=== PATIENT | male | born 1960 | race African-American/Black ===

== ENCOUNTER 2016-04-21 17:37 | Inpatient (IN) | payer OTHER ==
[~2016-04-21] VITALS: Ht 185.4 cm; Wt 125.0 kg
[~2016-04-21 17:37] MED LIST: ALLO100 PO; COLC1TAB7 PO; COUM5TAB PO; D-10TAB3 PO; OMEP20TA39 PO; WARF1TAB PO
[2016-04-21 17:41] VITALS: BP 141/89; PULSE 72; RESP 15; TEMP 97.9; O2SAT 99
--- NOTE | 2016-04-21 18:11 | PD ---
HPI Chief Complaint: Pain: Acute or Chronic Time Seen by Provider: 18:08 Travel History International Travel<30 days: No Contact w/Intl Traveler<30days: No Traveled to known affect area: No History of Present Illness HPI 55-year-old male with history of gout, previous DVT, and indigestion, presents to the emergency department for evaluation of a DVT in his right lower extremity. Patient states he has been having right lower extremity swelling for as long as he knows, mostly exacerbated with frequent standing. He has not really been having any pain but with her primary care provider last week at the OR who sent him for ultrasound. He was instructed to come the emergency department for further evaluation. Patient states that he is already on Coumadin 10 mg daily. INR was 2.7 last week. Denies any significant pain but does have aching in his anterior medial right thigh. Denies any recent illnesses, fever, chills. No chest pain or tightness. No difficulty breathing. No other symptoms to report. PFSH Past Medical History Autoimmune Disease: No Blood Disorders: No Cancer: No Cardiovascular Problems: No Chemotherapy: No Diminished Hearing: No Deep Vein Thrombosis: Yes GERD: Yes Glaucoma: No Gout: Yes Genitourinary: Yes (BPH) Immune Disorder: No Musculoskeletal: Yes (CHRONIC LOW BACK PAIN) Neurologic: No Psychiatric: No Respiratory: No Immunizations Current: Yes Radiation Therapy: No Renal Failure: Yes (CHRONIC KIDNEY DISEASE) Triglycerides - High: Yes Past Surgical History Surgical History: No Previous Surgery Other Surgery: No Social History Alcohol Use: Yes (SOCIAL) Tobacco Use: No Substance Use: No Allergies-Medications (Allergen,Severity, Reaction): Coded Allergies: Doxycycline (Unverified Allergy, Severe, 04/21/16) PT STATES THINKS HE HAD HX OF REACTION. Reported Meds & Prescriptions Reported Meds & Active Scripts Active Review of Systems Except as stated in HPI: all other systems reviewed are Neg Physical Exam Narrative GENERAL: Well-nourished male patient, ambulatory and in no acute distress SKIN: Warm and dry. HEAD: Atraumatic. Normocephalic. EYES: Pupils equal and round. No scleral icterus. No injection or drainage. ENT: No nasal bleeding or discharge. Mucous membranes pink and moist. NECK: Trachea midline. No JVD. CARDIOVASCULAR: Regular rate and rhythm. No murmur appreciated. RESPIRATORY: No accessory muscle use. Clear to auscultation. Breath sounds equal bilaterally. GASTROINTESTINAL: Abdomen soft, non-tender, nondistended. Hepatic and splenic margins not palpable. MUSCULOSKELETAL: No obvious deformities. No clubbing. No cyanosis. Moderate edema of the right lower extremity. Distal pulses are palpable. Cap refills within normal limits.. NEUROLOGICAL: Awake and alert. No obvious cranial nerve deficits. Motor grossly within normal limits. Normal speech. PSYCHIATRIC: Appropriate mood and affect; insight and judgment normal. Data Data Last Documented VS Vital Signs Date Time Temp Pulse Resp B/P Pulse Ox O2 Delivery O2 Flow Rate FiO2 04/21/16 17:41 97.9 72 15 141/89 99 Orders Complete Blood Count With Diff (04/21/16 18:07) Comprehensive Metabolic Panel (04/21/16 18:07) Coag Profile (04/21/16 18:07) Us Leg Venous Doppler (04/21/16 ) Electrocardiogram (04/21/16 ) Labs Laboratory Tests Test 04/21/16 18:20 White Blood Count 7.9 TH/MM3 Red Blood Count 4.98 MIL/MM3 Hemoglobin 15.0 GM/DL Hematocrit 44.2 % Mean Corpuscular Volume 88.7 FL Mean Corpuscular Hemoglobin 30.0 PG Mean Corpuscular Hemoglobin 33.9 % Concent Red Cell Distribution Width 14.5 % Platelet Count 197 TH/MM3 Mean Platelet Volume 10.1 FL Neutrophils (%) (Auto) 66.9 % Lymphocytes (%) (Auto) 23.7 % Monocytes (%) (Auto) 7.0 % Eosinophils (%) (Auto) 1.9 % Basophils (%) (Auto) 0.5 % Neutrophils # (Auto) 5.3 TH/MM3 Lymphocytes # (Auto) 1.9 TH/MM3 Monocytes # (Auto) 0.6 TH/MM3 Eosinophils # (Auto) 0.2 TH/MM3 Basophils # (Auto) 0.0 TH/MM3 CBC Comment DIFF FINAL Differential Comment Prothrombin Time 30.8 SEC Prothromb Time International 2.7 RATIO Ratio Activated Partial 41.8 SEC Thromboplast Time MDM Medical Decision Making Medical Screen Exam Complete: Yes Emergency Medical Condition: Yes Medical Record Reviewed: Yes Differential Diagnosis DVT versus lymphadenopathy versus cellulitis Narrative Course 55-year-old male presents to [facility] department for evaluation right lower extremity thrombosis. Workup initiated intravenous. Once a medical bed becomes available, patient will be transferred and care assumed that provider. Condition: Stable Argelia Craven Apr 21, 2016 18:11
[2016-04-21 19:10] LABS: AUTOMATED NEUTROPHIL # 5.3 TH/MM3 (1.8-7.7); BASOPHIL % 0.5 % (0.0-2.0); EOSINOPHIL # 0.2 TH/MM3 (0-0.4); EOSINOPHIL % 1.9 % (0.0-4.0); HEMATOCRIT 44.2 % (39.0-51.0); HEMO FLAGS DIFF FINAL; LYMPH % 23.7 % (9.0-44.0); LYMPHOCYTE # 1.9 TH/MM3 (1.0-4.8); MEAN CELL VOLUME 88.7 FL (80.0-100.0); MEAN CORPUSCULAR HGB CONC 33.9 % (32.0-36.0); NEUT % 66.9 % (16.0-70.0); PLATELET COUNT 197 TH/MM3 (150-450); RED BLOOD COUNT 4.98 MIL/MM3 (4.50-5.90); RED CELL DISTRIBUTION WIDTH 14.5 % (11.6-17.2); WHITE BLOOD COUNT 7.9 TH/MM3 (4.0-11.0)
[2016-04-21 19:18] LABS: APTT (PATIENT) 41.8 SEC (24.3-30.1); INTERNATIONAL NORMALIZED RATIO 2.7 RATIO; PROTHROMBIN TIME - PATIENT 30.8 SEC (9.8-11.6)
[2016-04-21 19:27] LABS: ALKALINE PHOSPHATASE 89 U/L (45-117); ALT (GPT) 34 U/L (12-78); ANION GAP 8 MEQ/L (5-15); AST (GOT) 31 U/L (15-37); BICARBONATE 26.4 MEQ/L (21.0-32.0); BLOOD UREA NITROGEN 14 MG/DL (7-18); CHLORIDE 105 MEQ/L (98-107); GLOMERULAR FILTRATION RATE 61 ML/MIN (>89); SODIUM (NA) 139 MEQ/L (136-145); TOTAL BILIRUBIN ADULT 0.5 MG/DL (0.2-1.0)
--- NOTE | 2016-04-21 19:37 | PD ---
Physical Exam Date Seen by Provider: Apr 21, 2016 Time Seen by Provider: 19:35 Narrative The patient is a 55-year-old Cate male was initially evaluated in triage for the mid-level provider. Please refer to the initial history, physical, diagnostic evaluation, and treatment modality plan. The patient was signed out with ultrasound of the right lower extremity pending and laboratory evaluation pending. Data Data Last Documented VS Vital Signs Date Time Temp Pulse Resp B/P Pulse Ox O2 Delivery O2 Flow Rate FiO2 04/21/16 19:40 87 18 163/103 97 04/21/16 17:41 97.9 Orders Complete Blood Count With Diff (04/21/16 18:07) Comprehensive Metabolic Panel (04/21/16 18:07) Coag Profile (04/21/16 18:07) Us Leg Venous Doppler (04/21/16 ) Electrocardiogram (04/21/16 ) Admit Order (Ed Use Only) (04/21/16 20:45) Labs Laboratory Tests Test 04/21/16 18:20 White Blood Count 7.9 TH/MM3 Red Blood Count 4.98 MIL/MM3 Hemoglobin 15.0 GM/DL Hematocrit 44.2 % Mean Corpuscular Volume 88.7 FL Mean Corpuscular Hemoglobin 30.0 PG Mean Corpuscular Hemoglobin 33.9 % Concent Red Cell Distribution Width 14.5 % Platelet Count 197 TH/MM3 Mean Platelet Volume 10.1 FL Neutrophils (%) (Auto) 66.9 % Lymphocytes (%) (Auto) 23.7 % Monocytes (%) (Auto) 7.0 % Eosinophils (%) (Auto) 1.9 % Basophils (%) (Auto) 0.5 % Neutrophils # (Auto) 5.3 TH/MM3 Lymphocytes # (Auto) 1.9 TH/MM3 Monocytes # (Auto) 0.6 TH/MM3 Eosinophils # (Auto) 0.2 TH/MM3 Basophils # (Auto) 0.0 TH/MM3 CBC Comment DIFF FINAL Differential Comment Prothrombin Time 30.8 SEC Prothromb Time International 2.7 RATIO Ratio Activated Partial 41.8 SEC Thromboplast Time Sodium Level 139 MEQ/L Potassium Level 4.6 MEQ/L Chloride Level 105 MEQ/L Carbon Dioxide Level 26.4 MEQ/L Anion Gap 8 MEQ/L Blood Urea Nitrogen 14 MG/DL Creatinine 1.45 MG/DL Estimat Glomerular Filtration 61 ML/MIN Rate Random Glucose 99 MG/DL Calcium Level 8.8 MG/DL Total Bilirubin 0.5 MG/DL Aspartate Amino Transf 31 U/L (AST/SGOT) Alanine Aminotransferase 34 U/L (ALT/SGPT) Alkaline Phosphatase 89 U/L Total Protein 8.1 GM/DL Albumin 3.6 GM/DL [facility] Medical Record Reviewed: Yes Supervised Visit with VICENTA: Yes Interpretation(s) EKG reveals normal sinus rhythm with a rate of 66. No ischemic changes or ectopy noted. Laboratory Tests Test 04/21/16 18:20 White Blood Count 7.9 TH/MM3 Red Blood Count 4.98 MIL/MM3 Hemoglobin 15.0 GM/DL Hematocrit 44.2 % Mean Corpuscular Volume 88.7 FL Mean Corpuscular Hemoglobin 30.0 PG Mean Corpuscular Hemoglobin 33.9 % Concent Red Cell Distribution Width 14.5 % Platelet Count 197 TH/MM3 Mean Platelet Volume 10.1 FL Neutrophils (%) (Auto) 66.9 % Lymphocytes (%) (Auto) 23.7 % Monocytes (%) (Auto) 7.0 % Eosinophils (%) (Auto) 1.9 % Basophils (%) (Auto) 0.5 % Neutrophils # (Auto) 5.3 TH/MM3 Lymphocytes # (Auto) 1.9 TH/MM3 Monocytes # (Auto) 0.6 TH/MM3 Eosinophils # (Auto) 0.2 TH/MM3 Basophils # (Auto) 0.0 TH/MM3 CBC Comment DIFF FINAL Differential Comment Prothrombin Time 30.8 SEC Prothromb Time International 2.7 RATIO Ratio Activated Partial 41.8 SEC Thromboplast Time Sodium Level 139 MEQ/L Potassium Level 4.6 MEQ/L Chloride Level 105 MEQ/L Carbon Dioxide Level 26.4 MEQ/L Anion Gap 8 MEQ/L Blood Urea Nitrogen 14 MG/DL Creatinine 1.45 MG/DL Estimat Glomerular Filtration 61 ML/MIN Rate Random Glucose 99 MG/DL Calcium Level 8.8 MG/DL Total Bilirubin 0.5 MG/DL Aspartate Amino Transf 31 U/L (AST/SGOT) Alanine Aminotransferase 34 U/L (ALT/SGPT) Alkaline Phosphatase 89 U/L Total Protein 8.1 GM/DL Albumin 3.6 GM/DL Last Impressions Lower Extremity Ultrasound 04/21/16 0000 Signed Impressions: Service Date/Time: March 19:50 - CONCLUSION: Positive for DVT superficial femoral vein through the posterior tibial vein with collateral superficial circulation. Portion of this may be chronic. Maximus Camp MD Differential Diagnosis Differential diagnosis includes recurrent DVT, failed anticoagulation therapy, lymphedema, pulmonary embolism, subtherapeutic INR, coagulopathy. Narrative Course I, Dr. Joseph, have reviewed the advance practice practitioner's documentation and am in agreement, met with the patient face to face, made the diagnosis, and the medical decision making was done by me. *My assessment and Findings: 55-year-old Cate male was initially evaluated by the mid-level provider. Please refer to the initial history, physical, diagnostic evaluation, treatment modality plan. The patient has a history of DVTs in both legs in the past, is currently on Coumadin is therapeutic with an INR 2.7. Patient has some pain located over the medial aspect of his right leg and had an outpatient ultrasound performed at the [place] [facility] which revealed a new DVT according to the patient. The patient denies any chest pain, shortness of breath, nausea, or vomiting. He does note his right lower extremity slightly swollen in comparison to the left, but states this is intermittent. The patient was referred from the [place] [facility] to the emergency department for evaluation of possible new DVT despite therapeutic INR. Therefore, ultrasound was ordered of the right lower extremity to evaluate for acute versus chronic DVT. The patient's INR was noted to be therapeutic at 2.7. Ultrasound does reveal a DVT in the right leg, collateral circulation noted, may be acute on chronic. Patient does have acute on chronic with therapeutic INR, maybe candidate for IVC filter. Therefore, patient will be 23 hour observation to medicine, may benefit from vascular surgery input in regards IVC filter either by vascular or interventional radiology. Patient is comfortable with this plan of care and disposition. Physician Communication Physician Communication I discussed patient with Dr. Harrison who agrees with [address] Matson. Diagnosis Primary Impression: DVT (deep venous thrombosis) Qualified Code: I82.401 - Deep vein thrombosis (DVT) of right lower extremity , unspecified chronicity, unspecified vein Admitting Information Admitting Physician Requests: Observation Condition: Stable Adarsh Joseph MD Apr 21, 2016 19:37
[2016-04-21 19:38] LABS: POTASSIUM 4.6 MEQ/L (3.5-5.1)
[2016-04-21 19:40] VITALS: BP 163/103; PULSE 87; RESP 18; O2SAT 97
[2016-04-21] MEDS ORDERED: COLC1CAP3 PO (19:40)
[2016-04-21] MEDS ORDERED: ALLO100T PO (19:40)
[2016-04-21] MEDS ORDERED: OMEP20TA PO (19:40)
[2016-04-21] MEDS ORDERED: VITA1000 PO (19:40)
[2016-04-21] MEDS ORDERED: WARF-22 PO (19:40)
--- NOTE | 2016-04-21 20:30 | RADRPT ---
EXAM DATE/TIME: 04/21/2016 19:50 [facility] COMPARISON: US LEG BILATERAL VENOUS DOPPLER, August 18, 2011, 17:39. INDICATIONS : Right leg swelling. MEDICAL HISTORY : Deep venous thrombosis. Gastroesophageal reflux disease. Benign prostatic hyperplasia, (BPH) Hyper lipidemia. Chronic kidney disease. Chronic lower back pain. Gout. Measles. SURGICAL HISTORY : None. ENCOUNTER: Subsequent ACUITY: >1 year PAIN SCORE: 0/10 LOCATION: Right leg. TECHNIQUE: Venous ultrasound of the leg was performed from the inguinal ligament to the proximal calf. Real-prachi e, color Doppler and spectral tracing, compression and augmentation techniques were used. FINDINGS: The patient demonstrates occlusive thrombus in the superficial femoral vein bifurcation to the gl[place] kil[place] placer ior tibial vein. There is collateral venous flow suggesting a portion of this may be chronic thrombos is. CONCLUSION: Positive for DVT superficial femoral vein through the posterior tibial vein with collateral superfici al circulation. Portion of this may be chronic. Maximus Camp MD on April 21, 2016 at 20:27 Board Certified Radiologist. This report was verified electronically.
--- NOTE | 2016-04-21 21:11 | HHI.HP ---
[facility] Service Family Medicine Primary Care Physician [facility] Admission Diagnosis acute on chronic DVT failed Coumadin therapy Diagnoses: International Travel<30 Days: No Contact w/Intl Traveler<30days: No Known Affected Area: No History of Present Illness 55 year-old male with hx DVT x2 on anticoagulation and unknown coagulopathy presents to ED 04/21/16 for evaluation of DVT in right leg. Reports history of DVT L leg 2003 and R leg 2005. Since DVTs, reports chronic daily swelling of his R leg that worsens over the day and improves after rest. Swelling minimally improved with compression stockings, so he does not wear them. Currently reports aching sensation in medial R thigh, but denies calf pain or erythema. Though his chronic symptoms were unchanged, he requested Doppler of leg from [place] last week "because it hadn't been checked in a while". Doppler showed DVT in superficial femoral vein through the posterior tibial vein with collateral superficial circulation, possibly chronic, and he was instructed to come to ED. Denies any recent illnesses, fever/chills, chest pain/shortness of breath. Reports compliance with Coumadin 10mg daily with 2-4 week checks of INR, most recently 2.7. Drove long car ride to [place] last week, but stopped frequently to stretch. Denies airplane travel. Has been diagnosed with a thrombophilic disorder, though he is unsure of the name. Workup was performed as father, mother, brother have also had DVTs. Pt discussed placing IVC filter 6 months ago , but was told it wasn't recommended (though he is unsure why). Review of Systems ROS Limitations: Poor Historian Constitutional: DENIES: Fever, Chills, Dizziness Eyes: DENIES: Blurred vision, Vision loss Respiratory: COMPLAINS OF: Cough, DENIES: Sputum production, Shortness of breath Cardiovascular: DENIES: Chest pain, Syncope Gastrointestinal: DENIES: Constipation, Diarrhea, Nausea, Vomiting Musculoskeletal: COMPLAINS OF: Muscle aches Integumentary: DENIES: Rash Neurologic: DENIES: Seizures Psychiatric: DENIES: Confusion, Depression Past Family Social History Past Medical History Gout DVT x2 (2003, 2005) Unknown coagulopathy GERD Past Surgical History Colonoscopy Otherwise, denies Reported Medications Reported Meds & Active Scripts Active Reported Warfarin 10 Mg Tab 10 Mg PO DAILY Omeprazole 20 Mg Tab 20 Mg PO DAILY Colchicine 0.6 Mg Cap 0.6 Mg PO DAILY Vitamin D-1000 (Cholecalciferol) 1,000 Unit Tab 1,000 Units PO DAILY Allopurinol 100 Mg Tab 100 Mg PO DAILY Allergies: Coded Allergies: Doxycycline (Unverified Allergy, Severe, 04/21/16) PT STATES THINKS HE HAD HX OF REACTION. Active Ordered Medications Current Medications Cholecalciferol (Vitamin D3) 1,000 units DAILY PO ; Start 04/22/16 at 09:00 Pantoprazole Sodium (Protonix) 20 mg DAILY PO ; Start 04/22/16 at 09:00 Warfarin Sodium (Coumadin) 10 mg DAILY@16 PO ; Start 04/22/16 at 16:00 Patient Medication Teaching (Coumadin Booklet) 1 ONCE ONCE XX Last administered on 04/21/16 21:56; Start 04/21/16 at 21:15; Stop 04/21/16 at 21:16 ; Status DC Warfarin Sodium (Coumadin) 10 mg ONCE ONCE PO Last administered on 04/21/16 21:56; Start 04/21/16 at 21:30; Stop 04/21/16 at 21:31; Status DC IV Flush (NS Flush) 2 ml UNSCH PRN FLUSH FLUSH AFTER USING IV ACCESS; Start at 21:30 IV Flush (NS Flush) 2 ml BID FLUSH ; Start 04/22/16 at 09:00 Acetaminophen (Tylenol) 650 mg Q4H PRN PO TEMP > 100.4 Last administered on 03:13; Start 04/21/16 at 21:30 Ondansetron HCl (Zofran Inj) 4 mg Q6H PRN IVP NAUSEA OR VOMITING; Start at 21:30 Naloxone HCl (Narcan Inj) 0.4 mg UNSCH PRN IV SEE LABEL COMMENTS; Start at 21:30 Family History Mother, Brother, Father with coagulopathy (pt unsure of name) 3 children, healthy Social History Tobacco: none Alcohol: daily vodka + juice, 2-3 glasses. CAGE screen negative. 1 month prior , did not drink alcohol for 1 week while on antibiotics. 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 HEENT: PERRL. EOMI. No scleral icterus. NECK: No LAD CV: RRR. No murmurs RESP: Lungs CTAB. No wheezing or rales, good air movement. GI: Abd soft NTND. No masses. MSK: R calf circumference > L. Tender to palpation R medial thigh, not R calf. Ankle swollen, but able to visualize both malleoli. No pitting edema. Posterior tibial pulses 2+ NEURO:Grossly motor and sensory intact. Sensation intact to light touch in all extremities. Moves all limbs against gravity. PSYCH: Appropriate affect. Good insight. Poor historian. Laboratory Laboratory Tests Test 04/21/16 18:20 White Blood Count 7.9 Red Blood Count 4.98 Hemoglobin 15.0 Hematocrit 44.2 Mean Corpuscular Volume 88.7 Mean Corpuscular Hemoglobin 30.0 Mean Corpuscular Hemoglobin 33.9 Concent Red Cell Distribution Width 14.5 Platelet Count 197 Mean Platelet Volume 10.1 Neutrophils (%) (Auto) 66.9 Lymphocytes (%) (Auto) 23.7 Monocytes (%) (Auto) 7.0 Eosinophils (%) (Auto) 1.9 Basophils (%) (Auto) 0.5 Neutrophils # (Auto) 5.3 Lymphocytes # (Auto) 1.9 Monocytes # (Auto) 0.6 Eosinophils # (Auto) 0.2 Basophils # (Auto) 0.0 CBC Comment DIFF FINAL Differential Comment Prothrombin Time 30.8 Prothromb Time International 2.7 Ratio Activated Partial 41.8 Thromboplast Time Sodium Level 139 Potassium Level 4.6 Chloride Level 105 Carbon Dioxide Level 26.4 Anion Gap 8 Blood Urea Nitrogen 14 Creatinine 1.45 Estimat Glomerular Filtration 61 Rate Random Glucose 99 Calcium Level 8.8 Total Bilirubin 0.5 Aspartate Amino Transf 31 (AST/SGOT) Alanine Aminotransferase 34 (ALT/SGPT) Alkaline Phosphatase 89 Total Protein 8.1 Albumin 3.6 Result Diagram: 04/21/16181904/21/161819 Imaging Last Impressions Lower Extremity Ultrasound 04/21/16 0000 Signed Impressions: Service Date/Time: March 19:50 - CONCLUSION: Positive for DVT superficial femoral vein through the posterior tibial vein with collateral superficial circulation. Portion of this may be chronic. Maximus Camp MD Assessment and Plan Assessment and Plan 55 year-old AA male with hx of DVT x2 admitted to observation 04/21/16 for treatment [id number] DVT with failed outpt treatment with Coumadin. Code Status Full Discussed Condition With SDW: Dr. Harrison Problem List: (1) DVT (deep venous thrombosis) Status: Acute Plan: Likely [id number] due to long-standing history of R leg swelling. Failed outpt therapy with Coumadin and therapeutic INR (2.7 last week, per pt). Had extensive coagulopathy workup and diagnosed with a clotting disorder, but can not remember the name. Extensive family history of DVTs in mother, father, brother. CBC, Electrolytes wnl. BUN/Cr at baseline 1.3-1.4 (14/1.45, GFR 61). EKG: Normal EKG. HR 66. Normal sinus rhythm. Intervals wnl. No ST elevations or depression. -Admit to Observation under Dr. Matson -Vascular surgery consult for evaluation of IVC filter placement -Request nursing assistance with obtain records from [place], especially regarding coagulopathy -Tylenol 650mg q4h PO PRN pain (2) Gout Status: Chronic Plan: Last flare up 1 week ago. Presents in R foot as burning sensation. Denies swelling of great toe or joints. -Non-compliant with Allopurinol daily- continue home med -Hold Colchicine PRN flare up (3) GERD (gastroesophageal reflux disease) Status: Acute Plan: -Continue home Protonix 20mg daily (4) Alcohol consuption of more than two drinks per day Status: Chronic Plan: Daily use alcohol, 2-3 drinks, denies withdrawal, negative CAGE screen -Alcohol cessation counseling provided -[facility] protocol (5) Vitamin D deficiency Status: Chronic Plan: -Continue home Vitamin D3 1000mg daily (6) Fluids, Electrolytes, Nutrition, Prophylaxis Status: Acute Plan: Fluids: Per PO Electrolytes: monitor and replete, as needed Nutrition: Regular diet DVT prophylaxis: continue therapeutic Warfarin GI prophylaxis: continue home medication for GERD Problem Qualifiers (1) DVT (deep venous thrombosis): Qualified Code: I82.401 - Deep vein thrombosis (DVT) of right lower extremity, unspecified chronicity, unspecified vein Natalia Segal MD R1 Apr 21, 2016 21:11
[2016-04-21] MEDS ORDERED: ONDANSETRON HCL 4 MG/2 ML VIAL IVP PRN (21:30)
[2016-04-21] MEDS ORDERED: WARFARIN SOD 10 MG TAB PO ONE (21:30)
[2016-04-21] MEDS ORDERED: SODIUM CHLORIDE 0.9% FLUSH 5 ML FLUSH FLUSH PRN (21:30)
[2016-04-21] MEDS ORDERED: NALOXONE HCL 0.4 MG/ML AMP IV PRN (21:30)
[2016-04-21 23:26] VITALS: BP 136/79; PULSE 64; RESP 18; TEMP 98.7; O2SAT 96
[2016-04-22] VITALS (7 sets, daily range): BP systolic 115–150; BP diastolic 81–106; PULSE 53–62; RESP 16–20; TEMP 95.4–98.5; O2SAT 94–97
[2016-04-22] MEDS: ACETAMINOPHEN 325 MG TAB PO PRN ×3 (03:13→12:23)
[2016-04-22] MEDS ORDERED: FLUMAZENIL 0.5 MG/5 ML VIAL IV PUSH PRN (06:30)
[2016-04-22] MEDS ORDERED: LORazepam 2 MG TAB PO PRN (06:30)
[2016-04-22] MEDS ORDERED: LORazepam 2 MG/ML VIAL IV PUSH PRN ×4 (06:30)
[2016-04-22] MEDS ORDERED: LORazepam 1 MG TAB PO PRN (06:30)
[2016-04-22 07:51] LABS: INTERNATIONAL NORMALIZED RATIO 2.9 RATIO; PROTHROMBIN TIME - PATIENT 33.3 SEC (9.8-11.6)
[2016-04-22] MEDS: SODIUM CHLORIDE 0.9% FLUSH 5 ML FLUSH FLUSH SCH ×2 (08:54→21:14)
[2016-04-22] MEDS: PANTOPRAZOLE SOD 20 MG DELAYED RELEASE TAB PO SCH (08:54)
[2016-04-22] MEDS: CHOLECALCIFEROL (VIT D3) 1000 UNIT TAB PO SCH (08:54)
[2016-04-22] MEDS: ALLOPURINOL 100 MG TAB PO SCH (08:54)
[2016-04-22] MEDS ORDERED: ACETAMINOPHEN/HYDROcodone 325 MG/5 MG TAB PO ONE (09:00)
--- NOTE | 2016-04-22 11:48 | HHI.FPPN ---
Subjective Remarks Patient seen, examined and discussed with the medicine team. This is a 55-year-old [employer] with chronic thrombophilia and chronic DVT right lower extremity on Coumadin who was scanned at the [facility] yesterday and found to have acute on chronic DVT right lower extremity. This involved the posterior tibial and superficial femoral veins. Patient had some swelling of this lower extremity on a daily basis but no other symptoms. Family history in mother and brothers of blood clotting disorder. He prefers to take Coumadin versus any other novel anticoagulant so he can be reassured by his INR test. Please see history and physical examination for this admission for additional past, family, social history and review of systems. This was reviewed with the patient this morning and there is no change with the exception of no other symptoms today other than the intermittent swelling of his right lower extremity. This morning, he is asymptomatic. He has no complaints and would like to go home, he would like to continue his Coumadin. Objective Vitals Vital Signs Date Time Temp Pulse Resp B/P Pulse Ox O2 Delivery O2 Flow Rate FiO2 04/22/16 08:00 97.9 59 20 139/90 94 04/22/16 05:36 98.5 62 18 139/81 95 04/21/16 23:26 98.7 64 18 136/79 96 04/21/16 19:40 87 18 163/103 97 04/21/16 17:41 97.9 72 15 141/89 99 Result Diagram: 04/21/16 1820 04/21/16 1820 Other Results Laboratory Tests Test 04/21/16 04/22/16 18:20 06:38 White Blood Count 7.9 TH/MM3 Red Blood Count 4.98 MIL/MM3 Hemoglobin 15.0 GM/DL Hematocrit 44.2 % Mean Corpuscular Volume 88.7 FL Mean Corpuscular Hemoglobin 30.0 PG Mean Corpuscular Hemoglobin 33.9 % Concent Red Cell Distribution Width 14.5 % Platelet Count 197 TH/MM3 Mean Platelet Volume 10.1 FL Neutrophils (%) (Auto) 66.9 % Lymphocytes (%) (Auto) 23.7 % Monocytes (%) (Auto) 7.0 % Eosinophils (%) (Auto) 1.9 % Basophils (%) (Auto) 0.5 % Neutrophils # (Auto) 5.3 TH/MM3 Lymphocytes # (Auto) 1.9 TH/MM3 Monocytes # (Auto) 0.6 TH/MM3 Eosinophils # (Auto) 0.2 TH/MM3 Basophils # (Auto) 0.0 TH/MM3 CBC Comment DIFF FINAL Differential Comment Prothrombin Time 30.8 SEC 33.3 SEC Prothromb Time International 2.7 RATIO 2.9 RATIO Ratio Activated Partial 41.8 SEC Thromboplast Time Sodium Level 139 MEQ/L Potassium Level 4.6 MEQ/L Chloride Level 105 MEQ/L Carbon Dioxide Level 26.4 MEQ/L Anion Gap 8 MEQ/L Blood Urea Nitrogen 14 MG/DL Creatinine 1.45 MG/DL Estimat Glomerular Filtration 61 ML/MIN Rate Random Glucose 99 MG/DL Calcium Level 8.8 MG/DL Total Bilirubin 0.5 MG/DL Aspartate Amino Transf 31 U/L (AST/SGOT) Alanine Aminotransferase 34 U/L (ALT/SGPT) Alkaline Phosphatase 89 U/L Total Protein 8.1 GM/DL Albumin 3.6 GM/DL Imaging Last Impressions Lower Extremity Ultrasound 04/21/16 0000 Signed Impressions: Service Date/Time: March 19:50 - CONCLUSION: Positive for DVT superficial femoral vein through the posterior tibial vein with collateral superficial circulation. Portion of this may be chronic. Maximus Camp MD Objective Remarks O. CONSTITUTIONAL/GEN: normally nourished, in NAD. EYES: conjunctiva normal, PERRLA, EOMI. ENT: Mouth and pharynx normal. NECK: thyroid midline, carotids symmetrical. LUNGS: clear A-P, respiratory effort is normal. CARDIOVASCULAR: RR without murmur or gallop. No significant edema. GI/ABD: soft without masses, without organomegaly. : no CVA tenderness NEURO: No focal deficits. SKIN: color normal, no rashes noted. HEME/LYMPH: no bruising, petechia or significant adenopathy MUSC: back is normal in appearance. Extremities are normal in appearance. I do not appreciate any swelling in the right lower extremity. PSYCH/MENTAL STATUS: Alert and oriented x 3. A/P Assessment and Plan 55 year-old AA male with hx of DVT x2 admitted to observation 04/21/16 for treatment [id number] DVT with failed outpt treatment with Coumadin. Attending Attestation Patient seen and examined. Case reviewed and discussed with the resident team. Agree with plan of care as discussed with me and documented in the resident note. Problem List: (1) DVT (deep venous thrombosis) Status: Acute Plan: Likely [id number] due to long-standing history of R leg swelling. Failed outpt therapy with Coumadin and therapeutic INR (2.7 last week, per pt). Had extensive coagulopathy workup and diagnosed with a clotting disorder, but can not remember the name. Extensive family history of DVTs in mother, father, brother. CBC, Electrolytes wnl. BUN/Cr at baseline 1.3-1.4 (14/1.45, GFR 61). EKG: Normal EKG. HR 66. Normal sinus rhythm. Intervals wnl. No ST elevations or depression. -Admit to Observation under Dr. Matson -Vascular surgery consult for evaluation of IVC filter placement -Request nursing assistance with obtain records from [facility], especially regarding coagulopathy -Tylenol 650mg q4h PO PRN pain (2) Gout Status: Chronic Plan: Last flare up 1 week ago. Presents in R foot as burning sensation. Denies swelling of great toe or joints. -Non-compliant with Allopurinol daily- continue home med -Hold Colchicine PRN flare up (3) GERD (gastroesophageal reflux disease) Status: Acute Plan: -Continue home Protonix 20mg daily (4) Alcohol consuption of more than two drinks per day Status: Chronic Plan: Daily use alcohol, 2-3 drinks, denies withdrawal, negative CAGE screen -Alcohol cessation counseling provided -[facility] protocol (5) Vitamin D deficiency Status: Chronic Plan: -Continue home Vitamin D3 1000mg daily (6) Fluids, Electrolytes, Nutrition, Prophylaxis Status: Acute Plan: Fluids: Per PO Electrolytes: monitor and replete, as needed Nutrition: Regular diet DVT prophylaxis: continue therapeutic Warfarin GI prophylaxis: continue home medication for GERD Problem Qualifiers (1) DVT (deep venous thrombosis): Qualified Code: I82.401 - Deep vein thrombosis (DVT) of right lower extremity, unspecified chronicity, unspecified vein Laurel Matson MD Apr 22, 2016 11:48
[2016-04-22 11:49] LABS: BICARBONATE 28.3 MEQ/L (21.0-32.0); POTASSIUM 3.9 MEQ/L (3.5-5.1)
[2016-04-22] MEDS: ACETAMINOPHEN/HYDROcodone 325 MG/5 MG TAB PO PRN ×2 (15:49→22:37)
[2016-04-22] MEDS ORDERED: WARFARIN SOD 10 MG TAB PO SCH (16:00)
--- NOTE | 2016-04-22 17:29 | EKG ---
Date Performed: 04/21/2016 Time Performed: 18:30:51 PTAGE: 55 years EKG: Sinus rhythm NORMAL ECG PREVIOUS TRACING : 05/12/2014 09.55.06 Since previous tracing, no significant change noted DOCTOR: Christin Cadet Interpretating Date/Time 04/22/2016 17:26:09
[2016-04-22] MEDS: FOLIC ACID 1 MG TAB PO SCH (21:14)
--- NOTE | 2016-04-22 22:18 | RADRPT ---
EXAM DATE/TIME: 04/22/2016 20:50 [place] COMPARISON: No previous studies available for comparison. INDICATIONS : Cephalgia. RADIATION DOSE: 56.35 CTDIvol (mGy) MEDICAL HISTORY : Deep venous thrombosis. SURGICAL HISTORY : None. ENCOUNTER: Initial ACUITY: 1 day PAIN SCALE: 8/10 LOCATION: Left cranial TECHNIQUE: Multiple contiguous axial images were obtained of the head. Using automated exposure control and adj ustment of the mA and/or kV according to patient size, radiation dose was kept as low as reasonably a chievable to obtain optimal diagnostic quality images. FINDINGS: CEREBRUM: The ventricles are normal for age. No evidence of midline shift, mass lesion, hemorrhage or acute in farction. No extra-axial fluid collections are seen. POSTERIOR FOSSA: The cerebellum and brainstem are intact. The 4th ventricle is midline. The cerebellopontine angle i s unremarkable. EXTRACRANIAL: Mild mucoperiosteal thickening seen of the ethmoid and maxillary air cells. There is a small fluid le le in the left maxillary sinus. SKULL: The calvaria is intact. No evidence of skull fracture. CONCLUSION: No acute intracranial abnormality. Sinus disease as above. Rafael Jones MD on April 22, 2016 at 22:16 Board Certified Radiologist. This report was verified electronically.
--- NOTE | 2016-04-22 22:56 | MB ---
cc: NATALIA SEGAL MD, RUBY ANNE E. M.D. DATE OF CONSULTATION 04/22/[address] Natalia Segal CHIEF COMPLAINT Dr. Segal requests a consultation for Mr. Balderas with regarding recurrent right lower extremity deep vein thromboses. HISTORY OF PRESENT ILLNESS Mr. Balderas is a 55-year-old man with a history of gout, gastroesophageal reflux and recurrent right lower extremity deep vein thromboses. 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 He believes his mother has Factor five Leiden. His four sisters are unaffected and has a brother that has Factor five Leiden. He did not remember whether it is homozygous or heterozygous. However, review of the electronic medical record has a hypercoagulable workup dating back to November 15, 2004, shows the presence of heterozygosity for factor five Leiden. A prothrombin gene mutation was normal. His homocysteine level was significantly elevated, anticardiolipin antibody was positive for phosphatidyl IgM antibody. The antithrombin III was normal. The protein C, protein S were normal. There has been no repeat evaluation of his work antiphospholipid antibody. Mr. Balderas reports [facility] because of concern for progression of deep vein thromboses despite therapeutic INR. His INRs were reportedly 2.7 a week ago and was 2.7 on admission. He has an ultrasound of the lower extremity coordinated on 04/21 that showed positive for DVT superficial femoral vein and posterior tibial vein with collateral superficial circulation which suggests that the clot was chronic. Review of the electronic medical record show multiple lower extremity Doppler ultrasound, the earliest which was November 02, 2004. The left lower extremity ultrasound shows no deep vein thromboses. November 11, 2004 repeat Doppler ultrasound the left lower extremity showed deep vein thromboses in the popliteal vein. The next ultrasound from 08/23/2006 was a chronic organized thrombus nonocclusive in a popliteal vein. On March 10, 2009, he had an ultrasound of the right lower extremity that shows an extensive deep vein thromboses of the right common femoral vein, femoral vein, popliteal vein extending into the peroneal vein. Bilateral ultrasound on 08/18/2011 identified right femoral and popliteal veins vein thrombus which is nonocclusive. There is no thrombus identified in the left deep venous system. The right common femoral vein and the saphenous vein were patent back in 2011. Doppler ultrasound of the left arm in 2014 was negative. Results of the [facility] the [facility] was not available. However, the most recent ultrasound from April 21, 2006 shows occlusive thrombus in the superficial femoral vein in the right. Mr. Balderas is aware of his need for chronic anticoagulation. He reports that he is quite compliant with his Coumadin. He is familiar with his response to Coumadin. He has noted in the past that withholding one to two doses would throw his INR completely off. He reports no significant change in his symptoms. He has chronic swelling of the lower extremity at the end of the day which will resolve once he elevates his legs. He again states that he was recommended to come to [place] because of changes were seen in the ultrasound, presumably his last ultrasound was compared to previous one. His most urgent complaint at the moment is severe headache that has been going on all day. It is not alleviated by p.r.n. medications with Lortab that he took in the afternoon. He denies any vision changes. No nausea, no vomiting. He denies any bleeding. He has used low-molecular weight heparin in the past and does not like injections. He is able to give himself a shot. He has discussed with his primary physician alternatives to warfarin, but has returned repeatedly to Warfarin desirous of being able to monitor his anticoagulant therapy. He denies any bleeding event while on warfarin. He has not had recurrent event while on warfarin. He expressed concern about the inferior vena cava filters. He denies any changes in his bowel habits. No urinary complaints. The rest of his review of systems is negative. PAST MEDICAL HISTORY 1. Factor five Leiden heterozygosity positive anti phospholipid IgM antibody positivity 2. Gastroesophageal reflux, 3. Gout. 4. Mild renal insufficiency. PAST SURGICAL HISTORY Colonoscopy. FAMILY HISTORY Significant for brother who has Factor five Leiden, mother suspected to have Factor five Leiden. He has three children that are untested. SOCIAL HISTORY Denies any tobacco or illicit drug use. 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 He is , lives with his and children. He drinks alcohol daily. ALLERGIES DOXYCYCLINE CURRENT MEDICATIONS 1. Warfarin 10 mg once a day. 2. [place] 3. Vitamin D3. 4. Protonix. 5. Allopurinol. 6. Tylenol. PHYSICAL EXAMINATION VITAL SIGNS: Temperature 95.6, heart rate 51, respiratory rate 20, blood pressure 150/98. GENERAL: Mr. Balderas is a well-developed, well-nourished man who looks his stated age. He appears to be robust and healthy. HEENT: Pupils are round, reactive to light and accommodation. Oropharynx is clear. NECK: Supple. No adenopathy. LUNGS: Clear to auscultation. CARDIOVASCULAR: Reveals a mild bradycardia. ABDOMEN: Benign lower extremity with mild asymmetry right leg, more prominent than the left. Good pulses. LABORATORY DATA CBC is normal. BUN of 13, creatinine 133, estimated glomerular filtration rate of 68. ASSESSMENT/PLAN Mr. Balderas is a 55-year-old man with history of recurrent right lower extremity deep vein thromboses and previous left lower extremity deep vein thromboses. He is admitted for concerns of progression or failure of Coumadin. He has a questionable progression of clot while on therapeutic doses of Coumadin and a therapeutic INR. We had a lengthy discussion about the options for anticoagulant therapy. We discussed the option of trial of low-molecular weight heparin for a short while to see if it makes a difference in his leg symptoms. He reports no changes in his leg symptoms, only that the ultrasound had prompted him to come into the hospital to be evaluated. 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 I am unable to resolve the differences in the ultrasound. However, the reports were not available to me. We discussed risks and benefit of filter placement. I recommend against filter placement. He has no contraindication to anticoagulant therapy at present. He should be able to continue his anticoagulant therapy with Coumadin versus different anticoagulant. We will see if he is willing to try a low molecular weight heparin which he has tried before. Alternatively, he is encouraged to follow up with his physician at the [facility] to consider anticoagulant therapy since [facility] will need to have the drug chosen to be on formulary for him to continue it senior care. We discussed the need for long-term secondary prophylaxis in light of his recurrent deep vein thromboses and Factor five Leiden. He understands his risk at present and reports that he is compliant, now especially quite avid about confirming that his INR is therapeutic. In light of his new symptoms of severe headache, CT scan of the brain will be coordinated. Management would depend on results of that. I suspect that the CT scan of the head would be negative. I suspect that this may be rebound headache from his [place]. Lastly, he is encouraged to wear support hose more regularly. This would prevent postphlebitic symptoms. Repeat antiphospholipid antibody will be checked. His homocysteine level was previously elevated which may be related to his chronic renal insufficiency. Empiric trial of folic acid and B12 to lower it will be given. MD DANAY Lester/ /8:41 PM /10:12 PM MTDD
[2016-04-23 01:18] VITALS: BP 110/70; PULSE 64; RESP 16; TEMP 96.3; O2SAT 95
[2016-04-23 05:18] VITALS: BP 102/61; PULSE 60; RESP 15; TEMP 97.2; O2SAT 95
[2016-04-23 06:39] LABS: BICARBONATE 24.3 MEQ/L (21.0-32.0); POTASSIUM 4.4 MEQ/L (3.5-5.1)
[2016-04-23 06:57] LABS: HEMATOCRIT 42.4 % (39.0-51.0); MEAN CELL VOLUME 89.1 FL (80.0-100.0); MEAN CORPUSCULAR HEMOGLOBIN 29.6 PG (27.0-34.0); MEAN CORPUSCULAR HGB CONC 33.2 % (32.0-36.0); PLATELET COUNT 169 TH/MM3 (150-450); RED BLOOD COUNT 4.76 MIL/MM3 (4.50-5.90); RED CELL DISTRIBUTION WIDTH 14.3 % (11.6-17.2); REVIEW FLAG FINAL; WHITE BLOOD COUNT 6.9 TH/MM3 (4.0-11.0)
[2016-04-23 07:33] LABS: INTERNATIONAL NORMALIZED RATIO 2.8 RATIO; PROTHROMBIN TIME - PATIENT 32.5 SEC (9.8-11.6)
[2016-04-23 08:00] VITALS: BP 128/86; PULSE 57; RESP 18; TEMP 98.4; O2SAT 96
[2016-04-23] MEDS ORDERED: FOLI1TAB4 PO (08:45)
--- NOTE | 2016-04-23 08:46 | HHI.DCPOC ---
Discharge Care Plan Diagnosis: (1) Chronic deep vein thrombosis (DVT) Goals to Promote Your Health * To prevent worsening of your condition and complications * To maintain your health at the optimal level Directions to Meet Your Goals Take your medications as prescribed Follow your dietary instruction Follow activity as directed Keep your appointments as scheduled Take your immunizations and boosters as scheduled If your symptoms worsen call your PCP, if no PCP go to Urgent Care Center or Emergency Room Smoking is Dangerous to Your Health. Avoid second hand smoke Call the 24-hour hour crisis hotline for domestic abuse at Josephine Patel MD R2 Apr 23, 2016 08:46
[2016-04-23] MEDS ORDERED: VITA10002 PO (08:50)
--- NOTE | 2016-04-23 08:54 | PD.ONC.PN ---
Subjective Subjective Remarks Afebrile overnight. Pt resting in bed watching TV in no distress. He states he slept OK. He is asking questions about the results of his blood work. Objective Data Date Time Temp Pulse Resp B/P Pulse Ox O2 Delivery O2 Flow Rate FiO2 04/23/16 05:18 97.2 60 15 102/61 95 04/23/16 01:18 96.3 64 16 110/70 95 04/22/16 20:00 96.0 59 16 126/92 97 04/22/16 18:15 53 150/98 04/22/16 18:07 95.6 61 20 148/106 97 04/22/16 15:51 95.4 59 18 115/83 95 04/22/16 12:03 97.3 60 18 140/89 94 Result Diagram: 04/23/16 0547 04/23/16 0547 Laboratory Results Laboratory Tests Test 04/22/16 04/23/16 10:59 05:47 Sodium Level 140 MEQ/L 141 MEQ/L Potassium Level 3.9 MEQ/L 4.4 MEQ/L Chloride Level 106 MEQ/L 108 MEQ/L Carbon Dioxide Level 28.3 MEQ/L 24.3 MEQ/L Anion Gap 6 MEQ/L 9 MEQ/L Blood Urea Nitrogen 13 MG/DL 16 MG/DL Creatinine 1.33 MG/DL 1.48 MG/DL Estimat Glomerular Filtration 68 ML/MIN 60 ML/MIN Rate Random Glucose 112 MG/DL 104 MG/DL Calcium Level 8.5 MG/DL 8.6 MG/DL Vitamin B12 Level 542 PG/ML White Blood Count 6.9 TH/MM3 Red Blood Count 4.76 MIL/MM3 Hemoglobin 14.1 GM/DL Hematocrit 42.4 % Mean Corpuscular Volume 89.1 FL Mean Corpuscular Hemoglobin 29.6 PG Mean Corpuscular Hemoglobin 33.2 % Concent Red Cell Distribution Width 14.3 % Platelet Count 169 TH/MM3 Mean Platelet Volume 9.8 FL Prothrombin Time 32.5 SEC Prothromb Time International 2.8 RATIO Ratio Administered Medications Medications (Trade) Dose Ordered Sig/Lynette Route PRN Reason Start Time Stop Time Status Last Admin Dose Admin Cholecalciferol (Vitamin D3) 1,000 units DAILY PO 04/22/16 09:00 04/22/16 08:54 Pantoprazole Sodium (Protonix) 20 mg DAILY PO 04/22/16 09:00 04/22/16 08:54 Warfarin Sodium (Coumadin) 10 mg DAILY@16 PO 04/22/16 16:00 04/22/16 15:49 IV Flush (NS Flush) 2 ml BID FLUSH 04/22/16 09:00 04/22/16 21:14 Acetaminophen (Tylenol) 650 mg Q4H PRN PO TEMP > 100.4/ headache 04/21/16 21:30 04/22/16 12:23 Allopurinol (Zyloprim) 100 mg DAILY PO 04/22/16 09:00 04/22/16 08:54 Acetaminophen/ Hydrocodone Bitart ([place] 5-325 Mg) 1 tab Q6H PRN PO PAIN SCALE 5 TO 10 04/22/16 15:30 04/22/16 22:37 Folic Acid (Folate) 1 mg DAILY PO 04/22/16 21:00 04/22/16 21:14 Objective Remarks GENERAL: Middle-aged male sitting up in bed watching TV in no distress. SKIN: Warm and dry. HEAD: Normocephalic. EYES: No injection or drainage. NECK: Supple, trachea midline. CARDIOVASCULAR: +S1/S2. No murmur. RESPIRATORY: Breath sounds equal bilaterally. No accessory muscle use. GASTROINTESTINAL: Abdomen soft, non-tender, nondistended. EXTREMITIES: Mild edema to R leg. NEUROLOGICAL: No obvious focal deficit. Awake, alert, and oriented x3. Assessment/Plan Problem List: (1) Chronic deep vein thrombosis (DVT) Status: Acute Plan: - Repeat hypercoagulable workup pending - [facility]. - He does not wish to have IVC filter nor change from his Coumadin to a factor X agent. - He likes the comfort of seeing that his INR is therapeutic with the coumadin. Hx/Workup: The patient was found to have factor V Leiden in October 2004. There has been no repeat evaluation since that time for his antiphospholipid antibody. [facility] with concern for progression of deep vein thromboses despite therapeutic INR. Per the patient and he has always been very consistent with his Coumadin. Assessment 55-year-old male admitted with right lower extremity DVT despite being on Coumadin with therapeutic INR. Plan 1. Hypercoagulable workup pending 2. Continue Coumadin 3. Daily PT/INR 4. Monitor lower extremities for increased swelling Attending Statement Pt DC before could be seen. Discussed w/ PCP attending and INOCENTE Kaur. Continue to follow with [facility] PCP. Anju Hobson Apr 23, 2016 08:53 Lupe Loomis MD Apr 23, 2016 16:43
[2016-04-23] MEDS ORDERED: CYANOCOBALAMIN 1000 MCG/ML VIAL SQ ONE (09:00)
[2016-04-23] MEDS: ALLOPURINOL 100 MG TAB PO SCH (09:11)
[2016-04-23] MEDS: CHOLECALCIFEROL (VIT D3) 1000 UNIT TAB PO SCH (09:11)
[2016-04-23] MEDS: SODIUM CHLORIDE 0.9% FLUSH 5 ML FLUSH FLUSH SCH (09:11)
[2016-04-23] MEDS: PANTOPRAZOLE SOD 20 MG DELAYED RELEASE TAB PO SCH (09:11)
[2016-04-23] MEDS: ACETAMINOPHEN 325 MG TAB PO PRN (09:11)
[2016-04-23] MEDS: FOLIC ACID 1 MG TAB PO SCH (09:11)
--- NOTE | 2016-04-23 10:38 | HHI.FPPN ---
Subjective Remarks No acute events overnight. Vital signs unremarkable. This morning patient continues to feel well and feels ready to be discharged today. He does note to have a continued headache on his left temporal and is now occipital. His CT was negative. Tylenol is mildly controlling pain. (Josephine Patel MD R2 ) Objective Vitals Vital Signs Date Time Temp Pulse Resp B/P Pulse Ox O2 Delivery O2 Flow Rate FiO2 04/23/16 08:00 98.4 57 18 128/86 96 04/23/16 05:18 97.2 60 15 102/61 95 04/23/16 01:18 96.3 64 16 110/70 95 04/22/16 20:00 96.0 59 16 126/92 97 04/22/16 18:15 53 150/98 04/22/16 18:07 95.6 61 20 148/106 97 04/22/16 15:51 95.4 59 18 115/83 95 04/22/16 12:03 97.3 60 18 140/89 94 I/O 04/22/16 04/22/16 04/22/16 04/23/16 04/23/16 04/23/16 07:00 15:00 23:00 07:00 15:00 23:00 Intake Total 240 ml 480 ml Balance 240 ml 480 ml Intake Oral 240 ml 480 ml # Voids 4 (Josephine Patel MD R2) Result Diagram: 04/23/16 0547 04/23/16 0547 Objective Remarks GEN: Well-developed, well-nourished patient. No acute distress. CV: Regular rate and rhythm without obvious murmurs LUNGS: Clear to auscultation bilaterally. Normal respiratory effort. No wheezes , rales, rhonchi. EXT: No edema. NEURO/PSYCH: Awake, alert. Appropriate insight and judgment. Normal speech ( Josephine Patel MD R2) A/P Assessment and Plan 55 year-old AA male with history of recurrent DVTs currently therapeutic on Coumadin. Admitted for possible acute on chronic DVT. Discharge Planning Today. [facility]. Santana (Josephine Patel MD R2) Attending Attestation Patient seen and examined. Case reviewed and discussed with the resident team. Agree with plan of care as discussed with me and documented in the resident note. He is very eager to go home and has good follow up with the [facility] (Su Santana MD) Problem List: (1) DVT (deep venous thrombosis) Status: Chronic Plan: Suspected acute on chronic DVT is likely only persistent chronic DVT. There was concern for failed outpatient Coumadin treatment however this is not suspected to be the case. Family history significant for hypercoagulable state. PMH significant for factor V Leiden deficiency. Initially considered IV filter with vascular consult but recommended evaluation by hematology first. Hematology consulted: Appreciate recommendations * Suspect there is no acute thrombosis on chronic DVT * Extensively discussed anticoagulation therapy with patient. Per that discussion, appears patient will continue on Coumadin therapy. * Head CT ordered due to headache which was negative. 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, okay to be discharged with [facility] -Patient to get records for evaluation by his PCP for appropriate outpatient follow-up (2) Gout Status: Chronic Plan: Continuing home allopurinol -Hold Colchicine PRN flare up (3) Fluids, Electrolytes, Nutrition, Prophylaxis Status: Acute Plan: Diet: Regular Fluids: Per PO Electrolytes: Unremarkable DVT prophylaxis: continue therapeutic Warfarin GI prophylaxis: continue home medication Protonix Chronic conditions: * Continue home vitamin D supplementation (Josephine Patel MD R2) Problem Qualifiers (1) DVT (deep venous thrombosis): Qualified Code: I82.401 - Deep vein thrombosis (DVT) of right lower extremity, unspecified chronicity, unspecified vein Josephine Patel MD R2 Apr 23, 2016 10:38 Su Santana MD Apr 25, 2016 14:05 Josephine Patel MD R2 Apr 23, 2016 10:38
--- NOTE | 2016-04-23 13:37 | HHI.DS ---
Discharge Summary Admission Date Apr 22, 2016 at 12:15 Discharge Date: Apr 23, 2016 Admitting Diagnosis acute on chronic DVT failed Coumadin therapy (1) DVT (deep venous thrombosis) Plan: Suspected acute on chronic DVT is likely only persistent chronic DVT. There was concern for failed outpatient Coumadin treatment however this is not suspected to be the case. Family history significant for hypercoagulable state. PMH significant for factor V Leiden deficiency. Initially considered IV filter with vascular consult but recommended evaluation by hematology first. Hematology consulted: Appreciate recommendations * Suspect there is no acute thrombosis on chronic DVT * Extensively discussed anticoagulation therapy with patient. Per that discussion, appears patient will continue on Coumadin therapy. * Head CT ordered due to headache which was negative. * Repeat hypercoagulable labs including B12 ordered * Empiric treatment with folic acid and B12 to help lower homocystine * Per discussion with INOCENTE, lynsye to be [facility] to [facility] for evaluation by his PCP for appropriate outpatient follow-up (2) Gout Plan: Continuing home allopurinol -Hold Colchicine PRN flare up (3) Fluids, Electrolytes, Nutrition, Prophylaxis Plan: Diet: Regular Fluids: Per PO Electrolytes: Unremarkable DVT prophylaxis: continue therapeutic Warfarin GI prophylaxis: continue home medication Protonix Chronic conditions: * Continue home vitamin D supplementation Brief History 55 year-old male with hx DVT x2 on anticoagulation and unknown coagulopathy presents to ED 04/21/16 for evaluation of DVT in right leg. Reports history of DVT L leg 2003 and R leg 2005. Since DVTs, reports chronic daily swelling of his R leg that worsens over the day and improves after rest. Swelling minimally improved with compression stockings, so he does not wear them. Currently reports aching sensation in medial R thigh, but denies calf pain or erythema. Though his chronic symptoms were unchanged, he [facility] week "because it hadn't been checked in a while". Doppler showed DVT in superficial femoral vein through the posterior tibial vein with collateral superficial circulation, possibly chronic, and he was instructed to come to ED. Denies any recent illnesses, fever/chills, chest pain/shortness of breath. Reports compliance with Coumadin 10mg daily with 2-4 week checks of INR, most recently 2.7. Drove long car ride to [place] last week, but stopped frequently to stretch. Denies airplane travel. Has been diagnosed with a thrombophilic disorder, though he is unsure of the name. Workup was performed as father, mother, brother have also had DVTs. Pt discussed placing IVC filter 6 months ago , but was told it wasn't recommended (though he is unsure why). CBC/BMP: 04/23/16 0547 04/23/16 0547 Significant Findings Laboratory Tests Test 04/21/16 04/22/16 04/22/16 04/23/16 18:20 06:38 10:59 05:47 Prothrombin Time 30.8 SEC 33.3 SEC 32.5 SEC (9.8-11.6) (9.8-11.6) (9.8-11.6) Activated Partial 41.8 SEC Thromboplast Time (24.3-30.1) Creatinine 1.45 MG/DL 1.33 MG/DL 1.48 MG/DL (0.60-1.30) (0.60-1.30) (0.60-1.30) Estimat Glomerular Filtration 61 ML/MIN (>89) 68 ML/MIN (>89) 60 ML/MIN (>89) Rate Random Glucose 112 MG/DL (74-106) Chloride Level 108 MEQ/L (98-107) Imaging Last Impressions Head CT 04/22/16 0000 Signed Impressions: Service Date/Time: Friday, April 22, 2016 20:50 - CONCLUSION: No acute intracranial abnormality. Sinus disease as above. Rafael Jones MD Lower Extremity Ultrasound 04/21/16 0000 Signed Impressions: Service Date/Time: March 19:50 - CONCLUSION: Positive for DVT superficial femoral vein through the posterior tibial vein with collateral superficial circulation. Portion of this may be chronic. Maximus Camp MD PE at Discharge GEN: Well-developed, well-nourished patient. No acute distress. CV: Regular rate and rhythm without obvious murmurs LUNGS: Clear to auscultation bilaterally. Normal respiratory effort. No wheezes , rales, rhonchi. EXT: No edema. NEURO/PSYCH: Awake, alert. Appropriate insight and judgment. Normal speech Hospital Course 55-year-old male with a history of recurrent DVTs and factor V deficiency was directed to the ED from his PCP due to the presence of DVT on outside ultrasound. However patient has a history of chronic DVT but there was concern that this was an acute on chronic event. Further evaluation based off of history revealed that this was not an acute event. Therefore patient has not failed Coumadin therapy. Hematology was consulted who discussed these findings with the patient and ordered a hypercoagulable workup. Since patient was asymptomatic and requests to stay on Coumadin, he was discharged in stable condition with recommendations to follow-up with his PCP and to obtain lab results from his hospitalization. He was started on vitamin B12 and folic acid in hopes of lowering his homocystine level. Pt Condition on Discharge: Stable Discharge Disposition: Discharge Home Discharge Instructions DIET: Follow Instructions for: Coumadin (Warfarin) Diet Activities you can perform: Regular-No Restrictions Follow up Referrals: Appointment for Follow Up - 1 Week Hematology - 1 Week New Medications: Cyanocobalamin (Vitamin B-12) 1,000 Mcg Tab 1000 MCG PO DAILY Nutritional Supplement #30 Ref 0 TAB Folic Acid (Folate) 1 Mg Tab 1 MG PO DAILY #30 TAB Continued Medications: Allopurinol (Allopurinol) 100 Mg Tab 100 MG PO DAILY Gout #30 Ref 0 TAB Cholecalciferol (Vitamin D-1000) 1,000 Unit Tab 1000 UNITS PO DAILY Nutritional Supplement #1 Ref 0 BOTTLE Colchicine (Colchicine) 0.6 Mg Cap 0.6 MG PO DAILY Gout Ref 0 CAP Omeprazole (Omeprazole) 20 Mg Tab 20 MG PO DAILY #30 Ref 0 TAB Warfarin (Warfarin) 10 Mg Tab 10 MG PO DAILY Blood Clot Prevention #30 Ref 0 TAB Josephine Patel MD R2 Apr 23, 2016 13:37
[2016-04-27 19:53] LABS: PHOS SERINE AB IGA LESS THAN 20 U/mL (()); PHOS SERINE AB IGG LESS THAN 10 U/mL (()); PHOS SERINE AB IGM LESS THAN 25 U/mL (())
[2016-04-28 03:52] LABS: BETA2 GLYCOPROTEIN I AB IGA LESS THAN 9.0 SAU (< OR = 20)
== END 2016-04-23 11:30 | disposition home or self-care (01) | DRG 815 ==
LOC: NETRI 17:37 → NEDA 20:47 → NEPGCP 22:49 → OBSVTOIN 04-22 12:15 → HOCA 04-22 18:01
PROVIDERS: ADMIT Family Medicine; ATTEND Family Medicine
DX: D68.51 Activated protein C resistance (principal); I82.511 Chronic embolism and thrombosis of right femoral vein; E55.9 Vitamin D deficiency, unspecified; E78.5 Hyperlipidemia, unspecified; K21.9 Gastro-esophageal reflux disease without esophagitis; Z79.01 Long term (current) use of anticoagulants; N40.0 Benign prostatic hyperplasia without lower urinary tract symptoms; M10.9 Gout, unspecified
CPT/HCPCS: 70450; 80048; 80053; 82607; 83090; 83921; 85025; 85027; 85610; 85730; 86146; 86147; 86148; 93005; 93971; G0378; J3420

== ENCOUNTER 2016-05-30 08:58 | Emergency (ER) | payer OTHER ==
[~2016-05-30] VITALS: Ht 185.4 cm; Wt 122.0 kg
[~2016-05-30 08:58] MED LIST changes: -ALLO100 PO; +ALLO100T PO; +COLC1CAP3 PO; -COLC1TAB7 PO; -COUM5TAB PO; -D-10TAB3 PO; +FOLI1TAB4 PO; +OMEP20TA PO; -OMEP20TA39 PO; +VITA1000 PO; +VITA10002 PO; +WARF-22 PO; -WARF1TAB PO
[2016-05-30 09:00] VITALS: BP 192/98; PULSE 65; RESP 20; TEMP 97.7; O2SAT 99
[2016-05-30 09:22] VITALS: BP 182/92; PULSE 62; RESP 20; O2SAT 95
[2016-05-30] MEDS ORDERED: TYLETAB34 PO (09:31)
[2016-05-30] MEDS ORDERED: WARF-22 PO (09:31)
--- NOTE | 2016-05-30 09:39 | PD ---
HPI Chief Complaint: Pain: Acute or Chronic Time Seen by Provider: 09:30 Travel History International Travel<30 days: No Contact w/Intl Traveler<30days: No Traveled to known affect area: No History of Present Illness HPI This patient complains of increased pain in his right thigh. Pain is between hip and knee. No injury. Duration gradually worsening over 2 weeks. Patient has history of factor V Leiden mutation and is hypercoagulable. He has had multiple DVTs and requires lifelong Coumadin. He reports compliance. He has chronic DVT in the right leg from a ultrasound 5 weeks ago. He's had a total of 7 ultrasounds at this ER for DVT in the past. [facility] told him to come to the emergency room. Denies fever. Symptoms severity is moderate. No alleviating factors. PFSH Past Medical History Arthritis: No Asthma: No Autoimmune Disease: No Blood Disorders: No Heart Rhythm Problems: No Cancer: No Cardiovascular Problems: Yes (DVT ) High Cholesterol: Yes Chemotherapy: No Chest Pain: No Congestive Heart Failure: No COPD: No Cerebrovascular Accident: No Diminished Hearing: No Deep Vein Thrombosis: Yes Endocrine: No Gastrointestinal Disorders: Yes (GERD /hemmorrhoids) GERD: Yes Glaucoma: No Gout: Yes Genitourinary: Yes (BPH /CHRONIC KIDNEY DISEASE) Headaches: Yes ( ) Hiatal Hernia: No Immune Disorder: No Kidney Stones: No Medical other: Yes (TINNITUS) Musculoskeletal: Yes (CHRONIC LOW BACK PAIN/DJD) Neurologic: No Psychiatric: No Reproductive: No Respiratory: No Immunizations Current: Yes Migraines: No Radiation Therapy: No Renal Failure: Yes (CHRONIC KIDNEY DISEASE) Seizures: No Sleep Apnea: No Triglycerides - High: Yes Ulcer: No Past Surgical History Abdominal Surgery: No Cardiac Surgery: No Ear Surgery: No Endocrine Surgery: No Eye Surgery: No Genitourinary Surgery: No Gynecologic Surgery: No Oral Surgery: No Thoracic Surgery: No Other Surgery: No Social History Alcohol Use: Yes (SOCIAL) Tobacco Use: No Substance Use: No Allergies-Medications (Allergen,Severity, Reaction): Coded Allergies: Doxycycline (Unverified Allergy, Severe, 05/30/16) PT STATES THINKS HE HAD HX OF REACTION. Reported Meds & Prescriptions Reported Meds & Active Scripts Active Vitamin B-12 (Cyanocobalamin) 1,000 Mcg Tab 1,000 Mcg PO DAILY Folate (Folic Acid) 1 Mg Tab 1 Mg PO DAILY Reported Tylenol-Codeine #3 (Acetaminophen-Codeine) 300-30 mg Tab 1-2 Tab PO DAILY PRN Warfarin 10 Mg Tab 10 Mg PO DAILY S,T,TH, Warfarin 10 Mg Tab 7.5 Mg PO DIRECTED MWF Omeprazole 20 Mg Tab 20 Mg PO DAILY Colchicine 0.6 Mg Cap 0.6 Mg PO DAILY Vitamin D-1000 (Cholecalciferol) 1,000 Unit Tab 1,000 Units PO DAILY Allopurinol 100 Mg Tab 100 Mg PO DAILY Review of Systems General / Constitutional: No: Fever Eyes: No: Visual changes HENT: No: Headaches Cardiovascular: No: Chest Pain or Discomfort Respiratory: No: Shortness of Breath Gastrointestinal: No: Abdominal Pain Genitourinary: No: Dysuria Musculoskeletal: Positive: Pain Skin: No Rash Neurologic: No: Weakness Psychiatric: No: Depression Endocrine: No: Polydipsia Hematologic/Lymphatic: No: Easy Bruising Physical Exam Narrative GENERAL: Well-nourished, well-developed patient in no apparent distress. SKIN: Focused skin assessment reveals no rash and nodules. Skin is Warm and dry. HEAD: Atraumatic. Normocephalic. EYES: Pupils equal and round. No scleral icterus. No injection or drainage. ENT: No nasal bleeding or discharge. Mucous membranes pink and moist. NECK: Trachea midline. No JVD. CARDIOVASCULAR: Regular rate and rhythm. No murmur appreciated. RESPIRATORY: No accessory muscle use. Clear to auscultation. Breath sounds equal bilaterally. GASTROINTESTINAL: Abdomen soft, non-tender, nondistended. Hepatic and splenic margins not palpable. MUSCULOSKELETAL: No obvious deformities. No clubbing. No cyanosis. No edema. No significant asymmetry between right and left legs. No redness or warmth noted. NEUROLOGICAL: Awake and alert. No obvious cranial nerve deficits. Motor grossly within normal limits. Normal speech. PSYCHIATRIC: Appropriate mood and affect; insight and judgment normal. Data Data Last Documented VS Vital Signs Date Time Temp Pulse Resp B/P Pulse Ox O2 Delivery O2 Flow Rate FiO2 05/30/16 09:22 62 20 182/92 95 Room Air 05/30/16 09:00 97.7 Orders Iv Access Insert/Monitor (05/30/16 09:30) Complete Blood Count With Diff (05/30/16 09:30) Prothrombin Time / Inr (Pt) (05/30/16 09:30) Basic Metabolic Panel (Bmp) (05/30/16 09:31) Us Leg Venous Doppler (05/30/16 ) Labs Laboratory Tests Test 05/30/16 09:35 White Blood Count 10.8 TH/MM3 Red Blood Count 4.86 MIL/MM3 Hemoglobin 14.2 GM/DL Hematocrit 42.8 % Mean Corpuscular Volume 88.0 FL Mean Corpuscular Hemoglobin 29.3 PG Mean Corpuscular Hemoglobin 33.3 % Concent Red Cell Distribution Width 14.3 % Platelet Count 180 TH/MM3 Mean Platelet Volume 9.9 FL Neutrophils (%) (Auto) 77.2 % Lymphocytes (%) (Auto) 13.6 % Monocytes (%) (Auto) 7.7 % Eosinophils (%) (Auto) 0.9 % Basophils (%) (Auto) 0.6 % Neutrophils # (Auto) 8.4 TH/MM3 Lymphocytes # (Auto) 1.5 TH/MM3 Monocytes # (Auto) 0.8 TH/MM3 Eosinophils # (Auto) 0.1 TH/MM3 Basophils # (Auto) 0.1 TH/MM3 CBC Comment DIFF FINAL Differential Comment Prothrombin Time 36.3 SEC Prothromb Time International 3.1 RATIO Ratio Sodium Level 140 MEQ/L Potassium Level 4.9 MEQ/L Chloride Level 104 MEQ/L Carbon Dioxide Level 24.6 MEQ/L Anion Gap 11 MEQ/L Blood Urea Nitrogen 18 MG/DL Creatinine 1.51 MG/DL Estimat Glomerular Filtration 59 ML/MIN Rate Random Glucose 109 MG/DL Calcium Level 8.9 MG/DL MDM Medical Decision Making Medical Screen Exam Complete: Yes Emergency Medical Condition: Yes Medical Record Reviewed: Yes Differential Diagnosis Chronic DVT, acute on chronic DVT, subtherapeutic INR Narrative Course I have reviewed the patient's electronic medical record. Reviewed his hematology consultation from 5 weeks ago. Coumadin was the recommended therapy and IVC filter specifically recommended against. IV placed CBC is normal Metabolic profile shows minor renal insufficiency INR on Coumadin is 3.1 I debated whether repeating ultrasound of the right leg is worthwhile given we know there is some degree of chronic DVT there and he will require lifelong anticoagulation. I decided to order one so I can see what is happening and that today. This may assist in determining whether any treatment needs to be changed. I review the results of the ultrasound with the patient. Once again, he has moderate clot burden in the right upper leg. We had a lengthy discussion about this. Our work station support specialist expert has recommended Coumadin and no IVC filter so I'm not going to change that recommendation based on this. Really nothing new on today's presentation of significance. He has a work station support specialist appointment through the OR in 3 weeks' time. I've asked him to discuss with his primary physician and see if that can be moved up or if his primary physician recommends any changes in medication or therapy but that decision does not need to be made emergently now. Diagnosis Primary Impression: Chronic deep vein thrombosis (DVT) Qualified Code: I82.5Y1 - Chronic deep vein thrombosis (DVT) of proximal vein of right lower extremity Additional Instructions: Discuss today's test results with her primary physician and ask if they recommend medication or therapy change Follow up with OR work station support specialist Med/Other Pt SpecificInfo: Other Disposition: 01 DISCHARGE HOME Condition: Stable Dheeraj Duran MD May 30, 2016 09:39
[2016-05-30 09:56] LABS: AUTOMATED NEUTROPHIL # 8.4 TH/MM3 (1.8-7.7); BASOPHIL # 0.1 TH/MM3 (0-0.2); BASOPHIL % 0.6 % (0.0-2.0); EOSINOPHIL # 0.1 TH/MM3 (0-0.4); EOSINOPHIL % 0.9 % (0.0-4.0); HEMATOCRIT 42.8 % (39.0-51.0); HEMO FLAGS DIFF FINAL; LYMPH % 13.6 % (9.0-44.0); LYMPHOCYTE # 1.5 TH/MM3 (1.0-4.8); MEAN CORPUSCULAR HEMOGLOBIN 29.3 PG (27.0-34.0); MEAN CORPUSCULAR HGB CONC 33.3 % (32.0-36.0); MONO % 7.7 % (0.0-8.0); NEUT % 77.2 % (16.0-70.0); PLATELET COUNT 180 TH/MM3 (150-450); RED BLOOD COUNT 4.86 MIL/MM3 (4.50-5.90); RED CELL DISTRIBUTION WIDTH 14.3 % (11.6-17.2); WHITE BLOOD COUNT 10.8 TH/MM3 (4.0-11.0)
[2016-05-30 10:05] LABS: INTERNATIONAL NORMALIZED RATIO 3.1 RATIO; PROTHROMBIN TIME - PATIENT 36.3 SEC (9.8-11.6)
--- NOTE | 2016-05-30 10:13 | RADRPT ---
EXAM DATE/TIME: 05/30/2016 09:38 [facility] COMPARISON: US LEG RIGHT VENOUS DOPPLER, April 21, 2016, 19:50. INDICATIONS : Right leg swelling and pain. MEDICAL HISTORY : Hypercholesterolemia. Gastroesophageal reflux disease. Deep venous thrombosis . Hyperlipidemia. Measles. Gout. Chronic kidney disease. SURGICAL HISTORY : None. ENCOUNTER: Subsequent ACUITY: 2 weeks PAIN SCORE: 5/10 LOCATION: Right leg. TECHNIQUE: Venous ultrasound of the leg was performed from the inguinal ligament to the proximal calf. Real-time, color Doppler and spectral tracing, compression and augmentation techniques were us ed. FINDINGS: There is moderate burden of clot extending from the posterior tibial vein through the popliteal vein into the common femoral vein. Clot is nonocclusive at the inguinal ligament. CONCLUSION: Deep venous thrombosis as described above. Eliu Srinivasan MD FACR on May 30, 2016 at 10:06 Board Certified Radiologist. This report was verified electronically.
[2016-05-30 10:17] LABS: BICARBONATE 24.6 MEQ/L (21.0-32.0); POTASSIUM 4.9 MEQ/L (3.5-5.1)
[2016-05-30] MEDS ORDERED: PERC5TAB12 PO (11:54)
== END 2016-05-30 12:23 | disposition home or self-care (01) ==
LOC: NEPA 08:58
DX: I82.591 Chronic embolism and thrombosis of other specified deep vein of right lower extremity (principal); I82.511 Chronic embolism and thrombosis of right femoral vein; Z79.01 Long term (current) use of anticoagulants; E78.00 Pure hypercholesterolemia, unspecified; N18.9 Chronic kidney disease, unspecified; G89.29 Other chronic pain
CPT/HCPCS: 80048; 85025; 85610; 93971

== ENCOUNTER 2017-05-31 12:15 | Emergency (ER) | payer OTHER ==
[~2017-05-31] VITALS: Ht 185.4 cm; Wt 127.0 kg
[~2017-05-31 12:15] MED LIST changes: -OMEP20TA PO; +OMEP20TA93 PO; +PERC5TAB12 PO; +TYLETAB34 PO
[2017-05-31 12:26] VITALS: BP 149/87; PULSE 69; RESP 16; TEMP 98.3; O2SAT 98
[2017-05-31] MEDS ORDERED: SODIUM CHLOR 0.9% 1000 ML INJ 1,000 ML IV SCH (13:09)
[2017-05-31 13:11] VITALS: O2SAT 98
[2017-05-31] MEDS ORDERED: SODIUM CHLORIDE 0.9% FLUSH 10 ML FLUSH IV FLUSH PRN (13:15)
[2017-05-31] MEDS ORDERED: MORPHINE SULFATE 4 MG/ML INJ IV PUSH ONE (13:15)
[2017-05-31] MEDS ORDERED: KETOROLAC TROMETHAMINE 30 MG/ML (IVP) VIAL IVP ONE (13:15)
--- NOTE | 2017-05-31 13:17 | PD ---
HPI Chief Complaint: ENT Complaint Time Seen by Provider: 13:05 Travel History International Travel<30 days: No Contact w/Intl Traveler<30days: No Traveled to known affect area: No History of Present Illness HPI 56-year-old -[place] male patient, seen by the [facility] presents to the emergency room with painful swelling on the anterior neck/underneath of his chin since yesterday. Patient was seen at the [facility] several days ago and started on amoxicillin for right ear infection. Patient states his ear seems mildly improved. He states his throat does feel sore as well, and the pain underneath his chin is worse when he tries to swallow. He denies fever, chills, or heartburn. No sinus tenderness or drainage is noted. Patient has no upper respiratory symptoms otherwise, denies cough or chest pain. Denies abdominal symptoms. The pain under his chin is an 8 out of 10, and worse with palpation or movement. He is allergic to doxycycline PFSH Past Medical History Arthritis: No Asthma: No Autoimmune Disease: No Blood Disorders: No Heart Rhythm Problems: No Cancer: No Cardiovascular Problems: Yes (DVT ) High Cholesterol: Yes Chemotherapy: No Chest Pain: No Congestive Heart Failure: No COPD: No Cerebrovascular Accident: No Diminished Hearing: No Deep Vein Thrombosis: Yes Endocrine: No Gastrointestinal Disorders: Yes (GERD /hemmorrhoids) GERD: Yes Glaucoma: No Gout: Yes Genitourinary: Yes (BPH /CHRONIC KIDNEY DISEASE) Headaches: Yes ( ) Hiatal Hernia: No Immune Disorder: No Kidney Stones: No Musculoskeletal: Yes (CHRONIC LOW BACK PAIN/DJD) Neurologic: No Psychiatric: No Reproductive: No Respiratory: No Immunizations Current: Yes Migraines: No Radiation Therapy: No Renal Failure: Yes (CHRONIC KIDNEY DISEASE) Seizures: No Sleep Apnea: No Triglycerides - High: Yes Ulcer: No Past Surgical History Abdominal Surgery: No Cardiac Surgery: No Ear Surgery: No Endocrine Surgery: No Eye Surgery: No Genitourinary Surgery: No Gynecologic Surgery: No Oral Surgery: No Thoracic Surgery: No Other Surgery: No Social History Alcohol Use: Yes (SOCIAL) Tobacco Use: No Substance Use: No Allergies-Medications (Allergen,Severity, Reaction): Coded Allergies: doxycycline (Unverified Allergy, Severe, 05/31/17) PT STATES THINKS HE HAD HX OF REACTION. Reported Meds & Prescriptions Reported Meds & Active Scripts Active Percocet (Oxycodone-Acetaminophen) 5-325 mg Tab 1 Tab PO Q6H PRN Vitamin B-12 (Cyanocobalamin) 1,000 Mcg Tab 1,000 Mcg PO DAILY Reported Tylenol-Codeine #3 (Acetaminophen-Codeine) 300-30 mg Tab 1-2 Tab PO DAILY PRN Warfarin 10 Mg Tab 10 Mg PO DAILY S,T,TH, Warfarin 10 Mg Tab 7.5 Mg PO DIRECTED MWF Omeprazole 20 Mg Tab 20 Mg PO DAILY Colchicine 0.6 Mg Cap 0.6 Mg PO DAILY Vitamin D-1000 (Cholecalciferol) 1,000 Unit Tab 1,000 Units PO DAILY Allopurinol 100 Mg Tab 100 Mg PO DAILY Review of Systems Except as stated in HPI: all other systems reviewed are Neg General / Constitutional: No: Fever, Chills Eyes: No: Visual changes HENT: Positive: Sore Throat, Neck Pain, Masses (See history of present illness see history of present illness), Earache (See history of present illness), No: Headaches, Vertigo, Lightheadedness, Rhinitis, Rhinorrhea, Congestion, Nosebleed , Neck Stiffness, Gingival Bleeding, Dental Difficulties, Ear Discharge Cardiovascular: No: Chest Pain or Discomfort Respiratory: No: Cough, Shortness of Breath, Wheezing, Sneezing Gastrointestinal: No: Nausea, Vomiting, Diarrhea, Abdominal Pain Genitourinary: No: Dysuria Musculoskeletal: No: Pain Skin: No Rash Neurologic: No: Weakness Psychiatric: No: Depression Endocrine: No: Polydipsia Hematologic/Lymphatic: No: Easy Bruising Physical Exam Narrative GENERAL: Patient appears in mild to moderate distress per SKIN: Warm and dry. Normal color. Normal turgor. HEAD: Atraumatic. Normocephalic. EYES: Pupils equal and round. No scleral icterus. No injection or drainage. ENT: No nasal bleeding or discharge. Mucous membranes pink and moist. TMs appear normal bilaterally. Right TM seems to be clearing. Patient has tender palpable indurated area under the chin, without signs of pointing. There is no erythema. Pharynx appears normal. Uvula is midline. Airways patent. No obvious swelling under the tongue bilaterally. NECK: Trachea midline. Supple and nontender otherwise. CARDIOVASCULAR: Regular rate and rhythm. RESPIRATORY: No accessory muscle use. Clear to auscultation. Breath sounds equal bilaterally. GASTROINTESTINAL: Abdomen soft, non-tender, nondistended. Hepatic and splenic margins not palpable. MUSCULOSKELETAL: Extremities without clubbing, cyanosis, or edema. No obvious deformities. NEUROLOGICAL: Awake and alert. No obvious cranial nerve deficits. Motor grossly within normal limits. Five out of 5 muscle strength in the arms and legs. Normal speech. PSYCHIATRIC: Appropriate mood and affect; insight and judgment normal. Data Data Last Documented VS Vital Signs Date Time Temp Pulse Resp B/P (MAP) Pulse Ox O2 Delivery O2 Flow Rate FiO2 05/31/17 13:11 98 Room Air 05/31/17 12:26 98.3 69 16 149/87 (107) Orders Orders Complete Blood Count With Diff (05/31/17 13:09) Comprehensive Metabolic Panel (05/31/17 13:09) Prothrombin Time / Inr (Pt) (05/31/17 13:09) Act Partial Throm Time (Ptt) (05/31/17 13:09) Iv Access Insert/Monitor (05/31/17 13:09) Ecg Monitoring (05/31/17 13:09) Oximetry (05/31/17 13:09) NPO (05/31/17 13:09) Morphine Inj (Morphine Inj) (05/31/17 13:15) Sodium Chlor 0.9% 1000 Ml Inj (Ns 1000 M (05/31/17 13:09) Sodium Chloride 0.9% Flush (Ns Flush) (05/31/17 13:15) Ketorolac Inj (Toradol Inj) (05/31/17 13:15) Ct Soft Tiss Neck W Iv Cont (05/31/17 ) Labs Laboratory Tests Test 05/31/17 13:20 White Blood Count 11.8 TH/MM3 Red Blood Count 5.27 MIL/MM3 Hemoglobin 15.6 GM/DL Hematocrit 46.9 % Mean Corpuscular Volume 89.1 FL Mean Corpuscular Hemoglobin 29.7 PG Mean Corpuscular Hemoglobin Concent 33.3 % Red Cell Distribution Width 14.0 % Platelet Count 199 TH/MM3 Mean Platelet Volume 9.6 FL Neutrophils (%) (Auto) 74.4 % Lymphocytes (%) (Auto) 16.2 % Monocytes (%) (Auto) 7.0 % Eosinophils (%) (Auto) 1.6 % Basophils (%) (Auto) 0.8 % Neutrophils # (Auto) 8.8 TH/MM3 Lymphocytes # (Auto) 1.9 TH/MM3 Monocytes # (Auto) 0.8 TH/MM3 Eosinophils # (Auto) 0.2 TH/MM3 Basophils # (Auto) 0.1 TH/MM3 CBC Comment DIFF FINAL Differential Comment Prothrombin Time 10.7 SEC Prothromb Time International Ratio 1.1 RATIO Activated Partial Thromboplast Time 29.2 SEC MDM Medical Decision Making Medical Screen Exam Complete: Yes Emergency Medical Condition: Yes Differential Diagnosis Abscess. Lymphadenitis. Salivary gland stone. Narrative Course Patient appears medically stable at time of exam. Labs ordered including CBC, CMP. IV access is obtained the patient is given 2 mg morphine IV, 4 mg Zofran IV, 30 mg Toradol IV. Patient is given 1000 mL of normal saline bolus. CT of the soft tissues of the neck is ordered with contrast. CBC shows slight leukocytosis of 11.8 otherwise unremarkable. Coagulation studies are normal. Condition: Stable Jarod Bynum May 31, 2017 13:17
[2017-05-31 13:29] LABS: AUTOMATED NEUTROPHIL # 8.8 TH/MM3 (1.8-7.7); BASOPHIL # 0.1 TH/MM3 (0-0.2); BASOPHIL % 0.8 % (0.0-2.0); EOSINOPHIL # 0.2 TH/MM3 (0-0.4); EOSINOPHIL % 1.6 % (0.0-4.0); HEMATOCRIT 46.9 % (39.0-51.0); HEMOGLOBIN 15.6 GM/DL (13.0-17.0); LYMPH % 16.2 % (9.0-44.0); LYMPHOCYTE # 1.9 TH/MM3 (1.0-4.8); MEAN CELL VOLUME 89.1 FL (80.0-100.0); MEAN CORPUSCULAR HEMOGLOBIN 29.7 PG (27.0-34.0); MEAN CORPUSCULAR HGB CONC 33.3 % (32.0-36.0); MEAN PLATELET VOLUME 9.6 FL (7.0-11.0); MONOCYTE # 0.8 TH/MM3 (0-0.9); NEUT % 74.4 % (16.0-70.0); PLATELET COUNT 199 TH/MM3 (150-450); RED BLOOD COUNT 5.27 MIL/MM3 (4.50-5.90); WHITE BLOOD COUNT 11.8 TH/MM3 (4.0-11.0)
[2017-05-31 13:38] LABS: INTERNATIONAL NORMALIZED RATIO 1.1 RATIO; PROTHROMBIN TIME - PATIENT 10.7 SEC (9.8-11.6)
[2017-05-31] MEDS ORDERED: WARF-21 PO (13:42)
[2017-05-31] MEDS ORDERED: TYLE325T PO (13:42)
[2017-05-31] MEDS ORDERED: [UNRECOGNIZED DRUG - CODE] (13:42)
[2017-05-31] MEDS ORDERED: AMOX250C3 PO (13:42)
[2017-05-31 13:47] LABS: ALT (GPT) 59 U/L (12-78)
[2017-05-31 13:49] LABS: ALKALINE PHOSPHATASE 99 U/L (45-117); TOTAL BILIRUBIN ADULT 0.6 MG/DL (0.2-1.0); TOTAL PROTEIN 8.5 GM/DL (6.4-8.2)
[2017-05-31 13:54] LABS: BICARBONATE 22.5 MEQ/L (21.0-32.0); BLOOD UREA NITROGEN 13 MG/DL (7-18); CHLORIDE 107 MEQ/L (98-107); CREATININE 1.24 MG/DL (0.60-1.30); GLOMERULAR FILTRATION RATE 73 ML/MIN (>89); GLUCOSE,RANDOM 95 MG/DL (74-106); SODIUM (NA) 138 MEQ/L (136-145)
[2017-05-31 14:17] LABS: AST (GOT) 52 U/L (15-37)
[2017-05-31] MEDS ORDERED: IOHEXOL 350 MG/ML 10 ML VIAL (for RAD DIAG) IVCONTRAST ONE (14:53)
[2017-05-31] MEDS ORDERED: CLINDAMYCIN 900 MG/NS PREMIX 50 ML IV ONE (16:15)
[2017-05-31 16:30] VITALS: BP 156/93; PULSE 82; RESP 19; O2SAT 98
--- NOTE | 2017-05-31 17:22 | PD ---
Physical Exam Date Seen by Provider: May 31, 2017 Time Seen by Provider: 17:19 Narrative The patient is a 56-year-old male was initially evaluated by the previous physician, Dr. Berriso. Please refer to the initial history, physical, diagnostic evaluation, and treatment modality plan. The patient was signed out at [address] soft tissue of the neck pending for persistent right ear infection and throat pain. Data Data Last Documented VS Vital Signs Date Time Temp Pulse Resp B/P (MAP) Pulse Ox O2 Delivery O2 Flow Rate FiO2 05/31/17 16:30 82 19 156/93 (114) 98 Room Air 05/31/17 12:26 98.3 Orders Orders Complete Blood Count With Diff (05/31/17 13:09) Comprehensive Metabolic Panel (05/31/17 13:09) Prothrombin Time / Inr (Pt) (05/31/17 13:09) Act Partial Throm Time (Ptt) (05/31/17 13:09) Iv Access Insert/Monitor (05/31/17 13:09) Ecg Monitoring (05/31/17 13:09) Oximetry (05/31/17 13:09) NPO (05/31/17 13:09) Morphine Inj (Morphine Inj) (05/31/17 13:15) Sodium Chlor 0.9% 1000 Ml Inj (Ns 1000 M (05/31/17 13:09) Sodium Chloride 0.9% Flush (Ns Flush) (05/31/17 13:15) Ketorolac Inj (Toradol Inj) (05/31/17 13:15) Ct Soft Tiss Neck W Iv Cont (05/31/17 ) Iohexol 350 Inj (Omnipaque 350 Inj) (05/31/17 14:53) Clindamycin 900 Mg/Ns Premix (Cleocin 90 (05/31/17 16:15) Dexamethasone Inj (Decadron Inj) (05/31/17 18:00) Labs Laboratory Tests Test 05/31/17 13:20 White Blood Count 11.8 TH/MM3 Red Blood Count 5.27 MIL/MM3 Hemoglobin 15.6 GM/DL Hematocrit 46.9 % Mean Corpuscular Volume 89.1 FL Mean Corpuscular Hemoglobin 29.7 PG Mean Corpuscular Hemoglobin Concent 33.3 % Red Cell Distribution Width 14.0 % Platelet Count 199 TH/MM3 Mean Platelet Volume 9.6 FL Neutrophils (%) (Auto) 74.4 % Lymphocytes (%) (Auto) 16.2 % Monocytes (%) (Auto) 7.0 % Eosinophils (%) (Auto) 1.6 % Basophils (%) (Auto) 0.8 % Neutrophils # (Auto) 8.8 TH/MM3 Lymphocytes # (Auto) 1.9 TH/MM3 Monocytes # (Auto) 0.8 TH/MM3 Eosinophils # (Auto) 0.2 TH/MM3 Basophils # (Auto) 0.1 TH/MM3 CBC Comment DIFF FINAL Differential Comment Prothrombin Time 10.7 SEC Prothromb Time International Ratio 1.1 RATIO Activated Partial Thromboplast Time 29.2 SEC Blood Urea Nitrogen 13 MG/DL Creatinine 1.24 MG/DL Random Glucose 95 MG/DL Total Protein 8.5 GM/DL Albumin 4.0 GM/DL Calcium Level 9.0 MG/DL Alkaline Phosphatase 99 U/L Aspartate Amino Transf (AST/SGOT) 52 U/L Alanine Aminotransferase (ALT/SGPT) 59 U/L Total Bilirubin 0.6 MG/DL Sodium Level 138 MEQ/L Potassium Level 4.4 MEQ/L Chloride Level 107 MEQ/L Carbon Dioxide Level 22.5 MEQ/L Anion Gap 9 MEQ/L Estimat Glomerular Filtration Rate 73 ML/MIN [facility] Medical Record Reviewed: Yes Supervised Visit with VICENTA: No Interpretation(s) Laboratory Tests Test 05/31/17 13:20 White Blood Count 11.8 TH/MM3 Red Blood Count 5.27 MIL/MM3 Hemoglobin 15.6 GM/DL Hematocrit 46.9 % Mean Corpuscular Volume 89.1 FL Mean Corpuscular Hemoglobin 29.7 PG Mean Corpuscular Hemoglobin Concent 33.3 % Red Cell Distribution Width 14.0 % Platelet Count 199 TH/MM3 Mean Platelet Volume 9.6 FL Neutrophils (%) (Auto) 74.4 % Lymphocytes (%) (Auto) 16.2 % Monocytes (%) (Auto) 7.0 % Eosinophils (%) (Auto) 1.6 % Basophils (%) (Auto) 0.8 % Neutrophils # (Auto) 8.8 TH/MM3 Lymphocytes # (Auto) 1.9 TH/MM3 Monocytes # (Auto) 0.8 TH/MM3 Eosinophils # (Auto) 0.2 TH/MM3 Basophils # (Auto) 0.1 TH/MM3 CBC Comment DIFF FINAL Differential Comment Prothrombin Time 10.7 SEC Prothromb Time International Ratio 1.1 RATIO Activated Partial Thromboplast Time 29.2 SEC Blood Urea Nitrogen 13 MG/DL Creatinine 1.24 MG/DL Random Glucose 95 MG/DL Total Protein 8.5 GM/DL Albumin 4.0 GM/DL Calcium Level 9.0 MG/DL Alkaline Phosphatase 99 U/L Aspartate Amino Transf (AST/SGOT) 52 U/L Alanine Aminotransferase (ALT/SGPT) 59 U/L Total Bilirubin 0.6 MG/DL Sodium Level 138 MEQ/L Potassium Level 4.4 MEQ/L Chloride Level 107 MEQ/L Carbon Dioxide Level 22.5 MEQ/L Anion Gap 9 MEQ/L Estimat Glomerular Filtration Rate 73 ML/MIN Last Impressions Neck CT 05/31/17 0000 Signed Impressions: Service Date/Time: Wednesday, May 31, 2017 14:39 - CONCLUSION: 1. There is some induration and soft tissue fullness anterior to the hyoid bone beneath the chin. I do not see a focal discrete drainable fluid collection. I cannot exclude an underlying mass. If this patient does not respond to treatment MRI imaging through this area with contrast is warranted for further assessment. Gulshan Srinivasan MD Differential Diagnosis Differential diagnosis includes otitis media, eustachian tube dysfunction, retropharyngeal abscess, peritonsillar abscess, cervical lymphadenopathy, abscess, cellulitis, sialoadenitis, parotitis. Narrative Course The patient was originally evaluated by the previous physician, Dr. Berrios, please refer to the initial history, physical, diagnostic evaluation, and treatment modality plan. The patient was signed out at [address] soft tissue of the neck pending. The patient CT soft tissue neck reveals some induration soft tissue swelling anterior to the hyoid bone in the neck. I performed a physical examination the TMs were dull but there is no erythema or bulging. EACs are clear. There is no visible lesions under the tongue are palpable under the tongue. Oropharynx revealed no discrete masses, erythema, or exudate. The patient did have some induration under the mentum which is approximately 4 cm x 2 cm, mildly tender to palpation. No palpable abscess. CT reveals induration but no focal abscess, may be inflammatory changes such as cellulitis near a salivary duct. The patient was administered antibiotics and steroids in the emergency department. He will be discharged home on prednisone , and clindamycin. He is advised to follow-up with the [facility] if symptoms persist for outpatient MRI. He is also advised to return to the emergency department immediately if the swelling in the neck progresses or he has difficulty swallowing or shortness of breath. The patient agrees and understands. Discharge instructions were given verbally to both the and patient. Diagnosis Primary Impression: Cellulitis of submandibular region Patient Instructions: General Instructions Additional Instruction: Please provide the patient a copy of his CT results and lab results at discharge. Medications as directed. Follow-up with the [facility]. Return for progressing swelling, shortness of breath, or difficulty swallowing. Med/Other Pt SpecificInfo: Prescription(s) given Scripts Prednisone (Prednisone) 20 Mg Tab 40 MG PO DAILY for 4 Days, #8 TAB 0 Refills Take 40 mg (2 tablets) daily for 5 days Prov: Adarsh Joseph MD 05/31/17 Clindamycin (Cleocin) 150 Mg Cap 150 MG PO Q6H for Infection for 10 Days, #40 CAP 0 Refills Prov: Adarsh Joseph MD 05/31/17 Disposition: 01 DISCHARGE HOME Condition: Stable Adarsh Joseph MD May 31, 2017 17:22
--- NOTE | 2017-05-31 17:36 | RADRPT ---
EXAM DATE/TIME: 05/31/2017 14:39 [facility] COMPARISON: CT BRAIN W/O CONTRAST, April 22, 2016, 20:50. INDICATIONS : Painful swelling on underside of chin. IV CONTRAST: 71 cc Omnipaque 350 (iohexol) IV RADIATION DOSE: 18.90 CTDIvol (mGy) MEDICAL HISTORY : None SURGICAL HISTORY : None. ENCOUNTER: Initial ACUITY: 1 day PAIN SCALE: 4/10 LOCATION: neck TECHNIQUE: Volumetric scanning of the neck was performed. Using automated exposure control and adjustment of th e mA and/or kV according to patient size, radiation dose was kept as low as reasonably achievable to obtain optimal diagnostic quality images. DICOM format image data is available electronically for r eview and comparison. FINDINGS: The examination demonstrates some subtle inflammatory change in soft tissue fullness below the strut muscles and the subcutaneous soft tissues of the chin. I do not see a definite discrete walled off fl uid collection. There is only a small amount of inflammatory change around this. I would recommend fo llowup imaging post treatment to ensure this resolves and there is no underlying mass. MRI with contr ast as followup if this does not resolve post treatment would be warranted. The soft tissues of the nasopharynx, oropharynx and hypopharynx are unremarkable. The visualized bony structures are grossly intact. The parotid and submandibular glands are intact. There some scattered subcentimeter nodes but no pathologic adenopathy is seen. CONCLUSION: 1. There is some induration and soft tissue fullness anterior to the hyoid bone beneath the chin. I d o not see a focal discrete drainable fluid collection. I cannot exclude an underlying mass. If this p atient does not respond to treatment MRI imaging through this area with contrast is warranted for fur ther assessment. Gulshan Srinivasan MD on May 31, 2017 at 17:20 Board Certified Radiologist. This report was verified electronically.
[2017-05-31] MEDS ORDERED: DEXAMETHASONE SOD PHOS 4 MG/ML VIAL IV PUSH ONE (18:00)
[2017-05-31] MEDS ORDERED: PRED20 PO (18:44)
[2017-05-31] MEDS ORDERED: CLIN150 PO (18:44)
[2017-05-31 19:21] VITALS: BP 142/97
== END 2017-05-31 19:25 | disposition home or self-care (01) ==
LOC: NEPD 12:15
DX: K12.2 Cellulitis and abscess of mouth (principal); E78.2 Mixed hyperlipidemia; N18.9 Chronic kidney disease, unspecified; Z86.718 Personal history of other venous thrombosis and embolism; Z88.8 Allergy status to other drugs, medicaments and biological substances; Z79.01 Long term (current) use of anticoagulants; Z79.899 Other long term (current) drug therapy
CPT/HCPCS: 70491; 80053; 85025; 85610; 85730; 96361; 96374; 96375; 99284; J1100; J1885; J2270; J7030; Q9967

== ENCOUNTER 2017-08-04 10:45 | Emergency (ER) | payer OTHER ==
[~2017-08-04] VITALS: Ht 185.4 cm; Wt 130.0 kg
[~2017-08-04 10:45] MED LIST changes: +AMOX250C3 PO; +CLIN150 PO; -FOLI1TAB4 PO; +PRED20 PO; +TYLE325T PO; -TYLETAB34 PO; +WARF-21 PO; +[UNRECOGNIZED DRUG - CODE]
[2017-08-04 10:50] VITALS: BP 160/88; PULSE 68; RESP 16; TEMP 97.6; O2SAT 99
[2017-08-04] MEDS ORDERED: XARE10TA PO (11:09)
[2017-08-04] MEDS ORDERED: TYLETAB34 PO (11:09)
[2017-08-04] MEDS ORDERED: CYCL5TAB PO (11:09)
[2017-08-04] MEDS ORDERED: BACL10TA PO (11:09)
[2017-08-04] MEDS ORDERED: NORC5TAB PO (12:41)
[2017-08-04] MEDS ORDERED: PRED20 PO (12:41)
--- NOTE | 2017-08-04 12:41 | PD ---
HPI Chief Complaint: Back/ Neck Pain or Injury Time Seen by Provider: 12:24 Travel History International Travel<30 days: No Contact w/Intl Traveler<30days: No Traveled to known affect area: No History of Present Illness HPI 56-year-old male complains of low back pain. Patient states that the pain started 4 days ago. Patient states that he was lifting another person when it happened. Patient has history chronic back pain has been seen by personal physician in the past. Patient is on baclofen and opioids for pain. Patient denies any new fall. Patient states the pain is severe pain sharp pain and aching pain started in the low back area with radiation with radiation down to both legs. Patient denies any focal weakness or numbness of the lower extremity. Patient denies any bladder or bowel incontinence. Patient denies any numbness sensation in the pelvic area. Patient denies any fever chills. On a scale of 1-10 the pain is a 10. PFSH Past Medical History Hx Anticoagulant Therapy: Yes Arthritis: No Asthma: No Blood Disorders: No Heart Rhythm Problems: No Cancer: No Cardiovascular Problems: Yes (DVT ) High Cholesterol: Yes Chemotherapy: No Chest Pain: No Congestive Heart Failure: No COPD: No Cerebrovascular Accident: No Diminished Hearing: No Deep Vein Thrombosis: Yes Endocrine: No Gastrointestinal Disorders: Yes (GERD /hemmorrhoids) GERD: Yes Glaucoma: No Gout: Yes Genitourinary: Yes (BPH /CHRONIC KIDNEY DISEASE) Headaches: Yes ( ) Hiatal Hernia: No Immune Disorder: No Kidney Stones: No Musculoskeletal: Yes (CHRONIC LOW BACK PAIN/DJD) Neurologic: No Psychiatric: No Reproductive: No Respiratory: No Immunizations Current: Yes Migraines: No Radiation Therapy: No Renal Failure: Yes (CHRONIC KIDNEY DISEASE) Seizures: No Sleep Apnea: No Triglycerides - High: Yes Ulcer: No Tetanus Vaccination: < 5 Years Influenza Vaccination: No Past Surgical History Surgical History: No Previous Surgery Abdominal Surgery: No Cardiac Surgery: No Ear Surgery: No Endocrine Surgery: No Eye Surgery: No Genitourinary Surgery: No Gynecologic Surgery: No Oral Surgery: No Thoracic Surgery: No Other Surgery: No Social History Alcohol Use: Yes (SOCIAL) Tobacco Use: No Substance Use: No Allergies-Medications (Allergen,Severity, Reaction): Coded Allergies: doxycycline (Unverified Allergy, Severe, 05/31/17) PT STATES THINKS HE HAD HX OF REACTION. Reported Meds & Prescriptions Reported Meds & Active Scripts Active Percocet (Oxycodone-Acetaminophen) 5-325 mg Tab 1 Tab PO Q6H PRN Vitamin B-12 (Cyanocobalamin) 1,000 Mcg Tab 1,000 Mcg PO DAILY Reported Tylenol-Codeine #3 (Acetaminophen-Codeine) 300-30 mg Tab 1-2 Tab PO Q8HR PRN Baclofen 10 Mg Tab 10 Mg PO QID Flexeril (Cyclobenzaprine HCl) 5 Mg Tab 5 Mg PO QID Xarelto (Rivaroxaban) 10 Mg Tab 10 Mg PO DAILY Omeprazole 20 Mg Tab 20 Mg PO DAILY Colchicine 0.6 Mg Cap 0.6 Mg PO DAILY Vitamin D-1000 (Cholecalciferol) 1,000 Unit Tab 1,000 Units PO DAILY Allopurinol 100 Mg Tab 100 Mg PO DAILY Review of Systems General / Constitutional: No: Fever Eyes: No: Visual changes HENT: No: Headaches Cardiovascular: No: Chest Pain or Discomfort Respiratory: No: Shortness of Breath Gastrointestinal: No: Abdominal Pain Genitourinary: No: Dysuria Musculoskeletal: No: Pain Skin: No Rash Neurologic: No: Weakness Psychiatric: No: Depression Endocrine: No: Polydipsia Hematologic/Lymphatic: No: Easy Bruising Physical Exam Narrative GENERAL: Well-nourished, well-developed patient. SKIN: Focused skin assessment warm/dry. HEAD: Normocephalic. EYES: No scleral icterus. No injection or drainage. NECK: Supple, trachea midline. No JVD or lymphadenopathy. CARDIOVASCULAR: Regular rate and rhythm without murmurs, gallops, or rubs. RESPIRATORY: Breath sounds equal bilaterally. No accessory muscle use. GASTROINTESTINAL: Abdomen soft, non-tender, nondistended. MUSCULOSKELETAL: No cyanosis, or edema. BACK: Moderate tenderness diffuse over the low back area, lumbar area, without obvious deformity. No CVA tenderness. Negative straight leg raising. Neurologic exam normal. Data Data Last Documented VS Vital Signs Date Time Temp Pulse Resp B/P (MAP) Pulse Ox O2 Delivery O2 Flow Rate FiO2 08/04/17 10:50 97.6 68 16 160/88 (112) 99 Orders Orders Morphine Inj (Morphine Inj) (08/04/17 12:45) Ondansetron Odt (Zofran Odt) (08/04/17 12:45) Dexamethasone Inj (Decadron Inj) (08/04/17 12:45) MDM Medical Decision Making Medical Screen Exam Complete: Yes Emergency Medical Condition: Yes Differential Diagnosis Differential diagnosis include acute exacerbation of low back pain, fracture, spinal stenosis, cauda equina syndrome. Narrative Course 56-year-old male with acute exacerbation low back pain. Morphine 4 mg IM. Zofran 4 mg ODT. Decadron 8 mg IM. Diagnosis Primary Impression: Acute exacerbation of chronic low back pain Patient Instructions: General Instructions Additional Instructions: Take medications as directed. Apply moist heat to the back. Follow-up with personal physician and orthopedist. Return immediately if weakness numbness trouble with bladder or bowel control. Med/Other Pt SpecificInfo: Prescription(s) given Scripts Hydrocodone-Acetaminophen ([place]) 5 Mg-325 Mg Tab 1 TAB PO Q6H Y for PAIN, #12 TAB 0 Refills Prov: Alonzo Blackmon MD 08/04/17 Prednisone (Prednisone) 20 Mg Tab 20 MG PO BID, #14 TAB 0 Refills Prov: Alonzo Blackmon MD 08/04/17 Disposition: 01 DISCHARGE HOME Condition: Stable Alonzo Blackmon MD Aug 04, 2017 12:41
[2017-08-04] MEDS ORDERED: DEXAMETHASONE SOD PHOS 4 MG/ML VIAL IM ONE (12:45)
[2017-08-04] MEDS ORDERED: ONDANSETRON ODT 4 MG TAB PO ONE (12:45)
[2017-08-04] MEDS ORDERED: MORPHINE SULFATE 4 MG/ML INJ IM ONE (12:45)
== END 2017-08-04 12:49 | disposition home or self-care (01) ==
LOC: NEPD 10:45
DX: M54.5 Low back pain (principal); G89.29 Other chronic pain; X50.9XXA Other and unspecified overexertion or strenuous movements or postures, initial encounter; E78.2 Mixed hyperlipidemia; N18.9 Chronic kidney disease, unspecified; Z86.718 Personal history of other venous thrombosis and embolism; Z88.8 Allergy status to other drugs, medicaments and biological substances; Z79.01 Long term (current) use of anticoagulants; Z79.899 Other long term (current) drug therapy
CPT/HCPCS: 96372; 99283; J1100; J2270